=== PATIENT | male | born 1950 | race Caucasian/White ===

== ENCOUNTER → 2016-09-25 | Outpatient (REF) | payer OTHER ==
[~2016-09-25] MED LIST: ATOR1TAB21 PO; CELL250C PO; ELIQ5TAB PO; FENO134C PO; GLIM2TA PO; IMIT100T PO; LISI10TA4 PO; LOPR1TAB7 PO; METO100T PO; PRED10TA PO
[2016-09-25 14:06] LABS: PERCENT SATURATION 23.5 % (19.7-37.4)
== END ==
LOC: M LAB REF 08:35
PROVIDERS: ATTEND Internal Medicine Nephrology
DX: D50.9 Iron deficiency anemia, unspecified (principal)

== ENCOUNTER 2016-10-22 09:50 | Inpatient (IN) | payer OTHER ==
[~2016-10-22] VITALS: Ht 175.3 cm; Wt 81.7 kg
[2016-10-22] MEDS ORDERED: RANITIDINE (10:07)
[2016-10-22] MEDS ORDERED: CALC1CAP31 (10:07)
[2016-10-22] MEDS ORDERED: PRED20TA (10:07)
[2016-10-22] MEDS ORDERED: MONT10TA2 (10:07)
[2016-10-22] MEDS ORDERED: AMLO5TAB2 (10:07)
[2016-10-22] MEDS ORDERED: GLIM2TAB (10:07)
[2016-10-22] MEDS ORDERED: METO100T (10:07)
[2016-10-22] MEDS ORDERED: FURO20TA2 (10:07)
[2016-10-22] MEDS ORDERED: FERR325T (10:07)
[2016-10-22] MEDS ORDERED: ONDANSETRON 4MG/2ML VIAL (J2405) IV ONE (11:15)
[2016-10-22] MEDS ORDERED: MORPHINE 2 MG/ML 1ML SYRINGE IV PRN ×2 (11:45→17:45)
[2016-10-22] MEDS ORDERED: NS 1,000 ML IV SCH (11:45)
[2016-10-22 12:04] LABS: EOS % 0.3 % (0.0-3.0); LARGE UNSTAINED CELL % 0.4 % (0.0-4.0); LYMPH # 0.3 K/mm3 (1.5-4.5); LYMPH % 6.9 % (24.0-44.0); MEAN CORPUSCULAR HEMOGLOBIN 29.4 pg (27.0-33.0); MEAN CORPUSCULAR HGB CONC 31.6 g/dl (32.0-36.5); MEAN CORPUSCULAR VOLUME 93.2 fl (80.0-96.0); MONO # 0.2 K/mm3 (0.0-0.8); MONO % 4.3 % (0.0-5.0); NEUTROPHILS % 88.1 % (36.0-66.0); RED CELL DISTRIBUTION WIDTH 17.1 % (11.5-14.5); WHITE BLOOD COUNT 4.5 K/mm3 (4.0-10.0)
[2016-10-22 12:11] LABS: ALBUMIN/GLOBULIN RATIO 0.77 (1.00-1.93); ALKALINE PHOSPHATASE 115 U/L (45-117); ALT/SGPT 32 U/L (12-78); ANION GAP 9 MEQ/L (8-16); AST/SGOT 11 U/L (15-37); BILIRUBIN,DIRECT 0.6 MG/DL (0.0-0.2); BILIRUBIN,TOTAL 1.6 MG/DL (0.2-1.0); BLOOD UREA NITROGEN 154 MG/DL (7-18); CALCIUM LEVEL 8.6 MG/DL (8.8-10.2); CARBON DIOXIDE LEVEL 19 MEQ/L (21-32); CHLORIDE LEVEL 112 MEQ/L (98-107); CREATININE FOR GFR 8.84 MG/DL (0.70-1.30); GLOMERULAR FILTRATION RATE 6.5 (>49); GLUCOSE, FASTING 90 MG/DL (80-110); SODIUM LEVEL 140 MEQ/L (136-145); TOTAL PROTEIN 6.9 GM/DL (6.4-8.2)
[2016-10-22 12:14] LABS: INR 1.29
[2016-10-22 12:15] LABS: POTASSIUM SERUM 7.3 MEQ/L (3.5-5.1)
[2016-10-22] MEDS ORDERED: NS 1,000 ML IV ONE (12:30)
[2016-10-22] MEDS ORDERED: SOD POLYSTYRENE SULFONATE SUSP 15 GM/60 ML UD PO ONE (12:30)
[2016-10-22] MEDS ORDERED: HumuLIN R (REGULAR) INSULIN (NovoLIN R) **100U/ML** PER UNIT IV STA (12:45)
[2016-10-22] MEDS ORDERED: DEXTROSE 50% 50 ML SYRINGE IV STA (12:45)
[2016-10-22] MEDS ORDERED: CALCIUM CHLORIDE 10% 1 GM in D5W 100 ML IV ONE (12:45)
[2016-10-22 12:50] LABS: PLATELET COUNT, AUTOMATED 25 k/mm3 (150-450)
[2016-10-22] MEDS ORDERED: METOPROLOL TART 50 MG TAB PO ONE (13:00)
--- NOTE | 2016-10-22 13:12 | REP ---
ABDOMINAL SERIES: Supine and erect view of the abdomen demonstrate no free air. A few mildly dilated small bowel loops are seen in the upper abdomen. This could represent mild ileus. Some degree of partial obstruction cannot be excluded. A phlebolith is seen in the right pelvis. There are mild degenerative changes of the spine. An accompanying view of the chest demonstrates no acute infiltrate. Heart is upper limits of normal in size. IMPRESSION: No free air. A few mildly dilated small bowel loops in the upper abdomen are nonspecific. This could represent a mild ileus. I cannot completely exclude some degree of partial small bowel obstruction. Signed by Du Manzo MD 10/22/2016 04:22 P
[2016-10-22] MEDS ORDERED: PIPERACILLIN/TAZOBACTAM SOD 2.25 GM in D5W MINI-BAG PLUS 50 ML IV ONE (14:00)
--- NOTE | 2016-10-22 14:01 | REP ---
CT ABDOMEN AND PELVIS WITHOUT CONTRAST: CT abdomen and pelvis performed without IV contrast with sagittal and coronal reconstruction images. Visualized lung bases demonstrate mild fibrotic changes. Liver is grossly unremarkable. Multiple gallstones are seen in the gallbladder. Spleen, adrenals, and pancreas are grossly unremarkable. There are small bilateral renal cysts present with a hyperdense cyst in the left upper pole. There is no hydronephrosis or nephrolithiasis bilaterally. There is mild to moderate atherosclerotic calcification of the abdominal aorta without aneurysm. There is no adenopathy. There is no free air. Sigmoid colon demonstrates diffuse thickening with associated diverticula and surrounding streaky inflammatory change compatible with diverticulitis. A small amount of free fluid is seen in the pelvis. Urinary bladder is mildly distended and grossly unremarkable. IMPRESSION: Findings compatible with sigmoid diverticulitis with mild adjacent free fluid in the pelvis. No free air. No abscess seen. Small gallstones are seen in the gallbladder. Signed by Du Manzo MD 10/22/2016 04:22 P
[2016-10-22] MEDS ORDERED: METO100T PO (14:04)
[2016-10-22] MEDS ORDERED: SING10TA32 PO (14:04)
[2016-10-22] MEDS ORDERED: FERR325T PO (14:04)
[2016-10-22] MEDS ORDERED: PRED20TA PO (14:04)
[2016-10-22] MEDS ORDERED: ATOR1TAB21 PO (14:04)
[2016-10-22] MEDS ORDERED: CALC1CAP31 PO (14:04)
[2016-10-22] MEDS ORDERED: GLIM2TAB PO (14:04)
[2016-10-22] MEDS ORDERED: AMLO5TAB2 PO (14:04)
[2016-10-22] MEDS ORDERED: FURO20TA2 PO (14:04)
[2016-10-22] MEDS ORDERED: SUMA100T2 PO (14:06)
[2016-10-22] MEDS ORDERED: RANI150T PO (14:06)
--- NOTE | 2016-10-22 14:09 | HPEPDOC ---
Medical History and Physical Date of Admission History and Physical DATE OF ADMISSION: 09/06/15 ATTENDING: Dr. Burk PCP: Dr Alberto Manager Outreach. Dr Wetzel News Commentator- [place] Senior National Account Manager. Dr Carreon. CC: Abdominal pain HPI: 65yoM with a past medical history significant for CKD followed by Dr Wetzel , thrombocytopenia, recently evaluated with Rheumatology [place] for SLE. Pt with h/o DM2, Afib. Pt states his symptoms began last week. He was having a difficult time with BM and took ex lax which seemed to help. He states there was a sensation of "blockage" between the "rectum and bladder". It seemed to improve but Pt states he had "pasty brown stool" and "diarrhea" for a few days. Then began with Nausea, vomitting and lower abdominal pain with decreased po intake for the past 2-3 days. Pt states has not been able to take po meds past few days. Pt feels fatigued. No melena, hematochezia, hematuria. Denies NSAID use or any other OTC meds. Denies any fevers, chills, CP, SOB, cough, palpitations, changes in bladder habits. Upon presentation to the hospital the patient was found to have MAI, hyperkalemia, abdominal pain and thrombocytopenia, thus the hospitalist team was consulted. PMHx: DM2 Afib HLD Migraine [place] HTN CKD- followed by Dr Wetzel. H/O glomerulonephritis with Immune complex deposition disease. On Cellcept/prednisone as per Nephro. 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 1 sister alcoholism Children: Alive, Grave's disease Unexpected deaths due to medical reasons: None. ROS: As noted in HPI, otherwise 11pt ROS of systems reviewed and unremarkable. Pt states results of labs pending from Rheumatology [place]. PE: GEN: 65yoM, appears stated age. ill appearing. Alert and oriented x 3. Pleasant , interactive. HEENT: Normocephalic, atraumatic. Pupils are equal, round, and reactive to light. Extraocular movements are intact. No nystagmus appreciated. Sclera are nonicteric. Conjunctiva without injection. Nose midline. Nasal turbinates without bogginess. No facial asymmetry. Moist mucous membranes. Dentition fair. Pharynx pink and moist, no cobblestoning. Neck supple, trachea midline. No lymphadenopathy or thyromegaly appreciated. CHEST: Irregularly irregular, Tachycardic. Systolic murmur noted LUNGS: Clear to auscultation bilaterally. No wheezes, rales, or rhonchi. Breathing appears symmetric and easy. Patient is speaking in full sentences. No accessory muscle use. ABD: Round, soft, TTP LLQ>RLQ. Pt with mild TTP over LUQ. +Bowel sounds decreased. RT noted LLQ. No costovertebral angle tenderness. EXT: Pulses 2+ bilaterally dorsalis pedis and radial. No lower extremity edema appreciated. SKIN: [place], dry, warm. Capillary refill <2sec. erythematous papules noted torso. NEURO: Alert and oriented x 3. Cranial nerves III-XII are intact. No focal deficits appreciated. AXR: No free air. A few mildly dilated small bowel loops in the upper abdomen are nonspecific. This could represent a mild ileus. I cannot completely exclude some degree of partial small bowel obstruction. CT: A&P- pending LA 1.0 EKG: A fib, RVR 128bpm, NSSTabn. BC x 2 pending UC pending. A&P: 65yoM with a past medical history significant for CKD followed by Dr Wetzel, thrombocytopenia, recently evaluated with Rheumatology [place] for SLE. Pt with h/o DM2, Afib. Pt states his symptoms began last week. He was having a difficult time with BM and took ex lax which seemed to help. He states there was a sensation of "blockage" between the "rectum and bladder". It seemed to improve but Pt states he had "pasty brown stool" and "diarrhea" for a few days. Then began with Nausea, vomitting and lower abdominal pain with decreased po intake for the past 2-3 days. Pt states has not been able to take po meds past few days. 1. The patient will be admitted to ICU for at least [address] Burk's service. Pt is discussed with Dr Falk. 2. MAI/CKD. H/O glomerulonephritis with Immune complex deposition disease. ED/ Dr Falk discussed with Dr Wetzel. On Cellcept/prednisone as per Nephro- Follows with Dr Wetzel- baseline SCr 3.0-3.7. SCr was noted 8.84. IVF bolus x 1 in ED , additional bolus ordered, then at 100cc/hr. UC/BC pending. Consult Nephrology for further management as well. 3. Abdominal pain. CT result pending. Preliminary review indicative of Diverticulitis. (Pt with h/o Diverticulitis in past.) IV Zosyn renally dosed. NPO. 4. Thrombocytopenia. Plt [address] in ED. Discussed with Dr Wetzel and per previous labs Plt 65 09/27/16. 36-38 at visit in [place]. Stat peripheral smear pending. Consider Plt infusion with further decreased levels. 5. Hyperkalemia. S/P IV Calcium, Insulin 10 units, Kayexalate in ED. Nephrology consulted to further manage electrolytes. Recheck with labs at 4 PM. 6. Anemia- Baseline 8-9 per previous labs. Currently 10.6. 7. Possible SLE. Seen by rheumatology in [place] recently. Pt remains on po prednisone. 4. DM2- NPO currently. SSI Q6hr. 5. HTN- med rec pending. Lopressor with hold parameters oredered. 6. HLD- med rec pending, cont statin. 7. Afib- Cont metoprolol po 50 mg Q6 (usual dose 100mg BID)/Eliquis discontinued as per nephrology related to thrombocytopenia. CIP/Trop x 3 pending. ICU/TM. 8. H/O Migraine [place]- tylenol prn DVT prophylaxis SCD/TEDS. No Lovenox related to thrombocytopenia. The patient is a Full Code Vital Signs Vital Signs Date Time Temp Pulse Resp B/P (MAP) Pulse Ox O2 Delivery O2 Flow Rate FiO2 10/22/16 13:10 155/83 10/22/16 12:20 18 10/22/16 11:51 126 100 Room Air 10/22/16 09:51 99.0 Laboratory Data Labs 24H Laboratory Tests 2 10/22/16 11:02: White Blood Count 4.5, Red Blood Count 3.58L, Hemoglobin 10.6L, Hematocrit 33.4L , Mean Corpuscular Volume 93.2, Mean Corpuscular Hemoglobin 29.4, Mean Corpuscular Hemoglobin Concent 31.6L, Red Cell Distribution Width 17.1H, Platelet Count 25*L, Neutrophils (%) (Auto) 88.1H, Lymphocytes (%) (Auto) 6.9L, Monocytes (%) (Auto) 4.3, Eosinophils (%) (Auto) 0.3, Basophils (%) (Auto) 0.0, Neutrophils # (Auto) 4.0, Lymphocytes # (Auto) 0.3L, Monocytes # (Auto) 0.2, Eosinophils # (Auto) 0.0, Basophils # (Auto) 0.0, Large Unclassified Cells % 0.4 , Large Unclassified Cells # 0.0, Prothrombin Time 16.2H, Prothromb Time International Ratio 1.29, Activated Partial Thromboplast Time 38.2H, Anion Gap 9 , Glomerular Filtration Rate 6.5L, Calcium Level 8.6L, Aspartate Amino Transf ( AST/SGOT) 11L, Alanine Aminotransferase (ALT/SGPT) 32, Alkaline Phosphatase 115 , Total Bilirubin 1.6H, Direct Bilirubin 0.6H, Total Protein 6.9, Albumin 3.0L, Albumin/Globulin Ratio 0.77L, Lipase 677H 10/22/16 12:03: Lactic Acid Level 1.0 10/22/16 12:38: Urine Appearance CLEAR, Urine Color YELLOW, Urine pH 6.0, Urine Specific [place] 1.010, Urine Protein 1+H, Urine Glucose (UA) NEGATIVE, Urine Ketones TRACEH, Urine Urobilinogen 0.2, Urine Bilirubin NEGATIVE, Urine Leukocyte Esterase NEGATIVE, Urine Blood 3+H, Urine Nitrite NEGATIVE, Urine WBC (Auto) 8H , Urine RBC (Auto) TNTCH, Urine Hyaline Casts (Auto) 0, Urine Bacteria (Auto) NEGATIVE, Urine Squamous Epithelial Cells 0, Urine Sperm (Auto) CBC/BMP Laboratory Tests 10/22/16 11:02 Red Blood Count 3.58 L, Mean Corpuscular Volume 93.2, Mean Corpuscular Hemoglobin 29.4, Mean Corpuscular Hemoglobin Concent 31.6 L, Red Cell Distribution Width 17.1 H, Neutrophils (%) (Auto) 88.1 H, Lymphocytes (%) (Auto ) 6.9 L, Monocytes (%) (Auto) 4.3, Eosinophils (%) (Auto) 0.3, Basophils (%) ( Auto) 0.0, Neutrophils # (Auto) 4.0, Lymphocytes # (Auto) 0.3 L, Monocytes # ( Auto) 0.2, Eosinophils # (Auto) 0.0, Basophils # (Auto) 0.0 Microbiology Microbiology 10/22/16 Blood Culture, Received Pending 10/22/16 Blood Culture, Received Pending 10/22/16 Urine Culture, Received Pending Home Medications Scheduled Amlodipine Besylate (Amlodipine Besylate) 5 Mg Tab, 5 MG PO DAILY Atorvastatin Calcium (Atorvastatin Calcium) 20 Mg Tab, 20 MG PO QHS Calcitriol (Calcitriol) 0.25 Mcg Cap, 0.25 MCG PO Q2D Ferrous Sulfate (Ferrous Sulfate) 325 Mg Tab, 325 MG PO BID Furosemide (Furosemide) 20 Mg Tab, 20 MG PO DAILY Glimepiride (Glimepiride) 2 Mg Tab, 2 MG PO BID Metoprolol Tartrate (Metoprolol Tartrate) 100 Mg Tab, 150 MG PO BID Montelukast Sodium (Singulair) 10 Mg Tab, 10 MG PO DAILY Prednisone (Prednisone) 20 Mg Tab, 30 MG PO DAILY PATIENT STATES DR WETZEL IS DECREASING HIM FROM ORIGINAL 20MG BID, IS DOWN TO 30MG DAILY FOR ABOUT 1 MORE WEEK THEN DECREASING TO 20MG DAILY Ranitidine HCl (Ranitidine HCl) 150 Mg Tab, 1 TAB PO BID Scheduled PRN Sumatriptan Succinate (Sumatriptan Succinate) 100 Mg Tab, 100 MG PO PRN PRN for MIGRAINE Allergies Coded Allergies: No Known Drug Allergy (Unverified Allergy, Unknown, 09/06/15) Georgia Bui October 22, 2016 14:09
[2016-10-22] MEDS ORDERED: SODIUM CHLORIDE 0.9% 1000 ML IV ONE (14:30)
[2016-10-22 14:45] LABS: ABG HCO3 12.7 MEQ/L (22.0-26.0); ABG PARTIAL PRESSURE CO2 22.2 mmHg (35.0-45.0); ABG PARTIAL PRESSURE O2 148.7 mmHg (75.0-100.0); ABG STANDARD HCO3 15.7 MEQ/L (22.0-26.0); ABG TOTAL CO2 13.3 MEQ/L (23.0-31.0); ABG pH (ARTERIAL) 7.374 UNITS (7.350-7.450)
[2016-10-22] MEDS ORDERED: DEXTROSE 50% 50 ML SYRINGE IV PRN ×2 (14:45→21:30)
[2016-10-22] MEDS ORDERED: GLUCOSE 4 GM CHEW TABLET PO PRN ×2 (14:45→21:30)
[2016-10-22] MEDS ORDERED: GLUCAGON FOR INJ 1 MG VIAL (J1610) SC PRN ×2 (14:45→21:30)
[2016-10-22 14:54] LABS: REASON FOR REVIEW COMPREHENSIVE REVIEW
[2016-10-22 15:15] LABS: DIFF SLIDE NUMBER 303; MEAN CORPUSCULAR HEMOGLOBIN 29.8 pg (27.0-33.0); MEAN CORPUSCULAR HGB CONC 32.5 g/dl (32.0-36.5); MEAN CORPUSCULAR VOLUME 91.8 fl (80.0-96.0); RED CELL DISTRIBUTION WIDTH 17.4 % (11.5-14.5); WHITE BLOOD COUNT 5.1 K/mm3 (4.0-10.0)
[2016-10-22 15:38] LABS: PLATELET COUNT, AUTOMATED 28 k/mm3 (150-450)
[2016-10-22 15:41] LABS: ANISOCYTOSIS 1+
[2016-10-22 15:47] LABS: ALBUMIN 2.9 GM/DL (3.2-5.2); ALBUMIN/GLOBULIN RATIO 0.94 (1.00-1.93); ALKALINE PHOSPHATASE 106 U/L (45-117); ALT/SGPT 29 U/L (12-78); ANION GAP 11 MEQ/L (8-16); AST/SGOT 10 U/L (15-37); BILIRUBIN,TOTAL 1.3 MG/DL (0.2-1.0); CALCIUM LEVEL 8.6 MG/DL (8.8-10.2); CARBON DIOXIDE LEVEL 18 MEQ/L (21-32); CHLORIDE LEVEL 117 MEQ/L (98-107); CREATININE FOR GFR 8.59 MG/DL (0.70-1.30); GLOMERULAR FILTRATION RATE 6.7 (>49); GLUCOSE, FASTING 40 MG/DL (80-110); SODIUM LEVEL 146 MEQ/L (136-145)
[2016-10-22 15:50] LABS: POTASSIUM SERUM 6.2 MEQ/L (3.5-5.1)
[2016-10-22 15:51] LABS: BLOOD UREA NITROGEN 143 MG/DL (7-18)
[2016-10-22] MEDS ORDERED: HumaLOG INSULIN (NovoLOG) PER UNIT SC SCH ×2 (17:30→21:00)
[2016-10-22] MEDS ORDERED: METOPROLOL 5 MG/5 ML VIAL IV STA (17:40)
[2016-10-22 18:00] VITALS: BP 149/80
[2016-10-22] MEDS ORDERED: METOPROLOL TART 50 MG TAB PO SCH (18:00)
[2016-10-22] MEDS ORDERED: D5/0.9%NACL 1000ML IV ONE (18:00)
[2016-10-22] MEDS: ONDANSETRON 4MG/2ML VIAL (J2405) IV PRN (18:13)
[2016-10-22 19:23] LABS: CALCIUM LEVEL 7.9 MG/DL (8.8-10.2); CREATININE FOR GFR 8.66 MG/DL (0.70-1.30); GLOMERULAR FILTRATION RATE 6.6 (>49); MAGNESIUM LEVEL 1.4 MG/DL (1.8-2.4)
[2016-10-22 19:28] LABS: POTASSIUM SERUM 6.7 MEQ/L (3.5-5.1)
[2016-10-22 20:00] VITALS: BP 127/76
[2016-10-22 21:00] VITALS: BP 132/87
[2016-10-22] MEDS ORDERED: ATORVASTATIN 20 MG TAB PO SCH (21:00)
[2016-10-22] MEDS: MONTELUKAST 10 MG TAB PO SCH (21:10)
[2016-10-22] MEDS: predniSONE 10 MG TAB PO SCH (21:11)
[2016-10-22] MEDS: PIPERACILLIN/TAZOBACTAM SOD 2.25 GM in D5W MINI-BAG PLUS 50 ML IV SCH (21:11)
[2016-10-22] MEDS: SODIUM BICARBONATE 100 MEQ in D5W 1,000 ML IV SCH (21:12)
--- NOTE | 2016-10-22 21:12 | CR ---
DATE OF CONSULTATION: 10/22/2016 REQUESTING PHYSICIAN: Lisa Falk DO CONSULTING PHYSICIAN: Beulah Avila MD REASON FOR CONSULTATION: Management of acute kidney injury and hyperkalemia. CHIEF COMPLAINT: Patient presented to the emergency room today with pain in abdomen and loose stools for about 2-3 days. HISTORY OF PRESENT ILLNESS: Mr. Davion Gottlieb is a 65-year-old male who is a clinic patient of Dr. Wetzel, well known to nephrology service. He has history of glomerulonephritis secondary to immune complex deposition disease. He was treated with prednisone and CellCept up until he started developing pancytopenia. His CellCept is on hold at this time. His latest outpatient creatinine was 1.2 about a month ago. He was also recently evaluated by rheumatology in [place]. Patient presented to the emergency room today with 2-3 days history of pain in lower abdomen, difficulty with bowel movements, difficultly voiding his urine, sense of incomplete voiding, and loose stools. Patient was also nauseated and vomiting, he had very decreased oral intake. Patient felt very weak, fatigued, and tired, so he presented to the emergency room today. On arrival in the emergency room (ER), he was found to have acute renal failure. Further workup in the emergency room, including a CT scan of the abdomen showed acute diverticulitis. Patient was found to have a creatinine of 8.8 on admission with a potassium of 7.3. He was initially treated with insulin, dextrose 50% (D50), Kayexalate and calcium. Nephrology service was called for further management of acute kidney injury and hyperkalemia. Patient has already been given 2 liters of IV fluids in the emergency room. Patient also reports getting chills and rigors and he is reporting persistent lower abdominal pain with tenderness despite the pain medication. PAST MEDICAL HISTORY: 1. Chronic kidney disease stage III, with a baseline creatinine of around 1.2. 2. He has history of glomerulonephritis with immune complex deposition disease, currently on prednisone. 3. History of pancytopenia. 4. History of tender splenomegaly. 5. Cholelithiasis. 6. History of diverticulosis. 7. History of coronary artery disease. 8. History of brain tumor in the past. 9. Questionable history of systemic lupus erythematous (SLE). PAST SURGICAL HISTORY: 1. Status post mitral valve repair and coronary artery bypass grafting in 2005. 2. Status post appendectomy. 3. History of colonoscopy in 2013. ALLERGIES: No known drug allergies. FAMILY HISTORY: No significant family history of end-stage renal disease requiring hemodialysis. Positive family history of congestive heart failure (CHF) in mother and myocardial infarction (MS) in father. SOCIAL HISTORY: Patient denies any alcohol abuse or drug abuse and he is currently retired. REVIEW OF SYSTEMS: CONSTITUTIONAL: The patient reports chills, rigors, and weakness. EYES: He denies any blurry vision or double vision. EARS, NOSE, THROAT (ENT): He denies any dysphagia, odynophagia, or ear discharge. CARDIOVASCULAR: Patient reports history of atrial fibrillation and currently reports tachycardia and palpitations. RESPIRATORY: He denies any cough, shortness of breath, or wheezing. GASTROINTESTINAL (GI): Patient reports nausea, vomiting, decreased appetite, pain in abdomen, and loose stools. GENITOURINARY: Patient reports sense of incomplete voiding of the urine. He denies any dysuria or hematuria. MUSCULOSKELETAL: Patient reports weakness, otherwise he denies muscle aches and pains. CENTRAL NERVOUS SYSTEM (FICTION AND NONFICTION PROSE WRITER): Patient reports history of benign brain tumor, otherwise denies history of seizures or weakness. PSYCHIATRIC: Denies history of depression or anxiety. SKIN: Denies any skin rashes or ulcers. HEMATOLOGIC/ONCOLOGIC: Patient reports pancytopenia and reports splenomegaly as well. ENDOCRINE: Denies history of diabetes, hyperthyroidism, or hypothyroidism. All other review of systems is negative. PHYSICAL EXAMINATION: GENERAL: The patient is awake, alert, oriented times three, laying in bed, in moderate painful distress. VITAL SIGNS: Temperature 98.7 degrees Fahrenheit, blood pressure 145/97, pulse 136, respiratory rate 16, saturating 99% on room air. INTAKE and OUTPUT: Urine output is not recorded so far. Weight in the bed scale is 81 kg. HEAD and NECK EXAM: Extraocular muscles intact. Pupils equally round and reactive to light. Mucous membranes are dry. Neck is supple, there is no jugular venous distention (JVD). CARDIOVASCULAR: S1, S2, tachycardia. No murmur, rub, or gallop. RESPIRATORY: Clear to auscultation bilaterally. Bilaterally good air entry. No rales or rhonchi. ABDOMEN: Soft. Severely tender to deep palpation in the left lower quadrant and suprapubic region. He has rebound tenderness as well. Patient's spleen is palpable in the left upper quadrant and spleen is also very tender to palpate. Decreased bowel sounds all over. Liver is not palpable. EXTREMITIES: No clubbing or cyanosis. Pulses are 2+. FICTION AND NONFICTION PROSE WRITER: No focal neurological deficit. Power is 5/5 in all extremities. SKIN: No rashes or ulcers. LYMPH NODES: No significant cervical, axillary, or inguinal lymphadenopathy. LABORATORY REVIEW: CBC showed WBC 5,1, hemoglobin 10.1, platelets 28. INR is 1.29. Urinalysis showed 1+ protein, trace ketones, 3+ blood, too numerous to count RBCs. BMP on arrival showed sodium 140, potassium 7.3, chloride 112, bicarbonate 19, BUN 156, creatinine 8.8, calcium 8.6, albumin 3. Repeat BMP after initial resuscitation showed sodium 144, potassium 6.7, chloride 118, bicarbonate 17, BUN 146, creatinine 8.6, calcium 7.9, magnesium 1.4, lipase 677. Microbiology: Cultures are pending. IMAGING: CT scan of the abdomen and pelvis was done without contrast which showed sigmoid diverticulitis with mild adjacent free fluid in the pelvis. No free air. No abscess was seen. CURRENT INPATIENT MEDICATIONS: The patient's inpatient medications include: - D5W with 100 mEq of bicarbonate at 125 mL/hour, IV fluid boluses have already been given - Zosyn 2.25 grams IV every 8 hours - insulin sliding scale per protocol - metoprolol 5 mg IV every 6 hours - Singulair 10 mg by mouth daily - morphine 2 mg IV every 4 hours as needed for pain - Zofran 4 mg IV as needed for nausea and vomiting - prednisone 30 mg by mouth daily ASSESSMENT: 65-year-old male with recent history of acute glomerulonephritis, currently on prednisone, CellCept is on hold because of pancytopenia, admitted at this time because of acute diverticulitis and acute renal failure with hyperkalemia. PLAN: 1. Acute kidney injury superimposed on chronic kidney disease stage III. Patient has a baseline creatinine of around 1.2. He has a history of immune complex deposition disease. He was responding very well to prednisone and CellCept, however CellCept had to be stopped because of pancytopenia. Continue the prednisone dose at this time. I strongly suspect that the acute kidney injury at this time is because of dehydration and volume depletion. I have started the patient on IV bicarbonate containing fluids. Continue the fluid at 125 mL/hour. Continue to monitor intake and output. If patient's renal function does not start improving by tomorrow, then he will probably need hemodialysis catheter placement and initiation of hemodialysis. 2. Hyperkalemia. Hyperkalemia is secondary to severe metabolic acidosis and acute renal failure. Patient was already given Kayexalate in the emergency room. I would not give any more Kayexalate to this patient with acute diverticulitis. He was already given insulin, D50, calcium, and sodium bicarbonate in the emergency room. I have started the patient on bicarbonate containing fluid. Improvement of the renal function on diuresis should help improve hyperkalemia. Continue to monitor basic metabolic panel (BMP) every 4 hours. No acute EKG changes at this time. No urgent need of hemodialysis at this time, however I would have a very low threshold to do hemodialysis in this patient if his renal function does not improve. 3. Acute diverticulitis. Patient is nothing by mouth at this time. Medications have been changed into IV. Continue IV Zosyn at 2.5 grams IV every 8 hours which is adequate for his renal function. Continue pain optimization with IV morphine and continue Zofran for nausea and vomiting. 4. Atrial fibrillation with rapid ventricular rate. Patient was having tachycardia with a pulse rate of around 130s. I have ordered a dose of metoprolol 5 mg IV. Continue metoprolol 5 mg IV every 6 hours. If heart rate does not improve, patient can be given a dose of amiodarone 150 mg IV times one dose. 5. Anemia and thrombocytopenia. It is secondary to recent use of CellCept. Hemoglobin is within the acceptable limit at this time. Platelet count is slightly low. Part of it is secondary to splenomegaly. Rheumatology had recommended getting a splenectomy done in this patient, however this is not possible at this time because of acute illness. Continue to monitor for now. 6. Diabetes mellitus type 2. Patient is nothing by mouth at this time. Continue insulin sliding scale as per primary team. 7. Hypertension. Patient's blood pressure is slightly elevated at this time. I would not tightly control the blood pressure at this time in this patient who has sepsis secondary to acute diverticulitis. Continue every 6 hours IV metoprolol. 8. Normal anion gap metabolic acidosis. It is secondary to acute renal failure and diarrhea. I have started the patient on IV bicarbonate containing fluids. Acidosis is expected to improve with improvement in the renal function. Thank you for involving us in the care of this patient. We shall be happy to follow the patient along with you tomorrow morning. Plan of care was discussed with the patient's nurse.
[2016-10-22] MEDS ORDERED: CALCIUM GLUCONATE 1,000 MG in D5W MINI-BAG PLUS 100 ML IV ONE (21:30)
[2016-10-22 22:00] VITALS: BP 133/88
[2016-10-22 22:51] LABS: MEAN CORPUSCULAR HEMOGLOBIN 28.6 pg (27.0-33.0); MEAN CORPUSCULAR HGB CONC 30.5 g/dl (32.0-36.5); MEAN CORPUSCULAR VOLUME 93.8 fl (80.0-96.0); RED CELL DISTRIBUTION WIDTH 17.3 % (11.5-14.5); WHITE BLOOD COUNT 3.6 K/mm3 (4.0-10.0)
[2016-10-22 23:00] VITALS: BP 143/89
[2016-10-22 23:10] LABS: ANION GAP 10 MEQ/L (8-16); BLOOD UREA NITROGEN 145 MG/DL (7-18); CALCIUM LEVEL 8.6 MG/DL (8.8-10.2); CARBON DIOXIDE LEVEL 17 MEQ/L (21-32); CHLORIDE LEVEL 117 MEQ/L (98-107); CREATININE FOR GFR 8.66 MG/DL (0.70-1.30); GLOMERULAR FILTRATION RATE 6.6 (>49); GLUCOSE, FASTING 110 MG/DL (80-110); SODIUM LEVEL 144 MEQ/L (136-145)
[2016-10-22 23:14] LABS: POTASSIUM SERUM 6.6 MEQ/L (3.5-5.1)
[2016-10-23] VITALS (27 sets, daily range): BP systolic 109–153; BP diastolic 62–98
[2016-10-23] MEDS: METOPROLOL 5 MG/5 ML VIAL IV SCH ×6 (00:13→21:34)
[2016-10-23] MEDS: HumaLOG INSULIN (NovoLOG) PER UNIT SC SCH ×4 (00:14→17:53)
[2016-10-23 02:46] LABS: CALCIUM LEVEL 8.1 MG/DL (8.8-10.2); CREATININE FOR GFR 8.81 MG/DL (0.70-1.30); GLOMERULAR FILTRATION RATE 6.5 (>49)
[2016-10-23 02:49] LABS: POTASSIUM SERUM 6.8 MEQ/L (3.5-5.1)
[2016-10-23] MEDS: SODIUM BICARBONATE 100 MEQ in D5W 1,000 ML IV SCH ×3 (04:21→17:34)
[2016-10-23] MEDS: PIPERACILLIN/TAZOBACTAM SOD 2.25 GM in D5W MINI-BAG PLUS 50 ML IV SCH ×3 (06:11→21:34)
[2016-10-23 07:57] LABS: MEAN CORPUSCULAR HEMOGLOBIN 29.6 pg (27.0-33.0); MEAN CORPUSCULAR VOLUME 92.3 fl (80.0-96.0); RED CELL DISTRIBUTION WIDTH 17.3 % (11.5-14.5); WHITE BLOOD COUNT 2.5 K/mm3 (4.0-10.0)
[2016-10-23 08:11] LABS: ANION GAP 10 MEQ/L (8-16); BLOOD UREA NITROGEN 144 MG/DL (7-18); CALCIUM LEVEL 8.2 MG/DL (8.8-10.2); CARBON DIOXIDE LEVEL 18 MEQ/L (21-32); CHLORIDE LEVEL 114 MEQ/L (98-107); CREATININE FOR GFR 8.89 MG/DL (0.70-1.30); GLOMERULAR FILTRATION RATE 6.4 (>49); GLUCOSE, FASTING 237 MG/DL (80-110); SODIUM LEVEL 142 MEQ/L (136-145)
[2016-10-23 08:14] LABS: POTASSIUM SERUM 6.9 MEQ/L (3.5-5.1)
[2016-10-23] MEDS ORDERED: amLODIPine 5 MG TAB PO SCH (09:00)
--- NOTE | 2016-10-23 09:33 | ECGEPIP ---
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
[2016-10-23] MEDS: MONTELUKAST 10 MG TAB PO SCH (09:44)
[2016-10-23] MEDS: PANTOPRAZOLE 40MG TAB (PROTONIX) PO SCH (09:44)
[2016-10-23] MEDS: predniSONE 10 MG TAB PO SCH (09:44)
[2016-10-23] MEDS: METOPROLOL TARTRATE 100 MG TAB PO SCH ×2 (09:45→21:33)
[2016-10-23] MEDS: ONDANSETRON 4MG/2ML VIAL (J2405) IV PRN (09:51)
[2016-10-23] MEDS ORDERED: LIDOCAINE W/EPINEPHRINE 1% 20ML VIAL As Ordered ONE (10:37)
[2016-10-23] MEDS ORDERED: HEPARIN 1,000 UNITS/ML 10ML VIAL (FOR RADIOLOGY& DIALYSIS ONLY) As Ordered ONE (10:37)
[2016-10-23] MEDS ORDERED: SODIUM BICARBONATE 8.4% INJ 50MEQ 50 ML VIAL As Ordered ONE (10:37)
[2016-10-23] MEDS ORDERED: HEPARIN 1,000 UNITS/ML 10ML VIAL (FOR RADIOLOGY& DIALYSIS ONLY) XX ONE (11:15)
[2016-10-23] MEDS ORDERED: fentaNYL 100 MCG/2 ML INJECTION (J3010) As Ordered ONE (11:18)
--- NOTE | 2016-10-23 12:42 | REPKIM ---
CLINICAL HISTORY: Renal failure, thrombocytopenia, CAD. The referring nephrology service has requested a tunneled dialysis catheter placement for hemodialysis. PROCEDURE PERFORMED: Right IJ Tunneled Hemodialysis Catheter Placement INTERVENTIONALIST: Ashia Husain MD CONSENT: The risks, benefits and alternatives to the procedure were explained to the patient and informed written consent was obtained. MEDICATIONS: Local Lidocaine and Fentanyl 50 mcg IV. Independent trained observer was present during the entire duration of the procedure for monitoring. EBL: 25 mL DEVICE USED: 14.5-Hungarian 19-cm tip to cuff EvenMore Catheter Lot#[id number] FLUORO TIME: 0.2 minutes PROCEDURE/FINDINGS: The patient was brought to the interventional radiology suite where a timeout procedure was performed. The patient was placed in the supine position. The right neck and upper chest were prepped and draped in the usual sterile fashion. Real time ultrasound was used and permanent image stored. Using ultrasound guidance the internal jugular vein was punctured with a micropunture needle, after infiltration of the skin and deep tissues with local anesthetic. A 19-cm tip to cuff length, 14.5-Hungarian dual lumen EvenMore hemodialysis catheter was inserted. The catheter was placed through a subcutaneous tunnel requiring a second incision. The incision at the base of the neck was closed with 4-0 Vicryl suture and covered with steristrips. The catheter was secured at the skin exit site with 2-0 Prolene suture. The ports of the catheter were locked with heparin (1000 units/mL). A sterile dressing was then applied. Patient received platelet transfusion during the procedure due to severe thrombocytopenia. Post procedure chest fluoroscopy showed the tip of the catheter at the SVC. The patient tolerated the procedure well with no immediate complications. This procedure was performed using ultrasound and fluoroscopy. Dr. Husain was present. IMPRESSION: 1. Ultrasound of the neck demonstrates patent right IJ vein and compressible. 2. Successful right IJ tunneled hemodialysis catheter placement as discussed above. There is free aspiration of blood from all ports of the catheter. The catheter is ready for immediate use. cc: MD Gardenia White MD [facility] NETWORKRoxy
[2016-10-23 12:50] LABS: HEPATITIS B SURFACE ANTIBODY NEGATIVE (POSITIVE)
[2016-10-23] MEDS ORDERED: fentaNYL 100 MCG/2 ML INJECTION (J3010) IV SCH (13:30)
[2016-10-23 14:02] LABS: CHOLESTEROL LEVEL 85 MG/DL (<200); TRIGLYCERIDES LEVEL 89 MG/DL (<150)
[2016-10-23 14:58] LABS: CALCIUM LEVEL 8.1 MG/DL (8.8-10.2); CREATININE FOR GFR 8.83 MG/DL (0.70-1.30); GLOMERULAR FILTRATION RATE 6.5 (>49)
[2016-10-23 15:00] LABS: POTASSIUM SERUM 6.3 MEQ/L (3.5-5.1)
[2016-10-23 16:19] LABS: MEAN CORPUSCULAR HEMOGLOBIN 29.5 pg (27.0-33.0); MEAN CORPUSCULAR HGB CONC 32.7 g/dl (32.0-36.5); MEAN CORPUSCULAR VOLUME 90.4 fl (80.0-96.0); RED CELL DISTRIBUTION WIDTH 17.4 % (11.5-14.5)
[2016-10-23] MEDS: ACETAMINOPHEN TAB 650MG DOSE (2X325MG) PO PRN (18:36)
[2016-10-23 22:47] LABS: MEAN CORPUSCULAR HEMOGLOBIN 30.3 pg (27.0-33.0); MEAN CORPUSCULAR VOLUME 91.9 fl (80.0-96.0); WHITE BLOOD COUNT 2.1 K/mm3 (4.0-10.0)
[2016-10-23 22:51] LABS: CALCIUM LEVEL 7.6 MG/DL (8.8-10.2); CREATININE FOR GFR 5.86 MG/DL (0.70-1.30); GLOMERULAR FILTRATION RATE 10.4 (>49); POTASSIUM SERUM 4.7 MEQ/L (3.5-5.1)
[2016-10-23] MEDS ORDERED: DESMOPRESSIN ACETATE 20 MCG in NS 50 ML IV ONE (23:00)
[2016-10-24] VITALS (26 sets, daily range): BP systolic 116–175; BP diastolic 66–87
[2016-10-24] MEDS: METOPROLOL 5 MG/5 ML VIAL IV SCH ×2 (02:00→06:00)
--- NOTE | 2016-10-24 02:37 | IPN ---
DATE OF SERVICE: 10/23/2016 SUBJECTIVE: Patient was seen and examined at the bedside today morning in the intensive care unit (ICU). Patient continues to be hyperkalemic. Patient does have improving urine output, but his renal function was not improving. Hemodialysis was discussed with the patient. The patient agreed to have hemodialysis done. He also reports that last time when he had glomerulonephritis he also needed hemodialysis shortly during that admission as well. Patient reports that pain abdomen is getting better and his loose stool symptoms are also improving at this time. REVIEW OF SYSTEMS: Patient denies any fever, chills, rigors, headaches, nausea, vomiting. He denies any chest pain or shortness of breath. He does report lower abdominal pain, but it is significantly better as compared with yesterday. Rest of review of systems is negative. Patient also reports tachycardia and palpitations because of the ongoing atrial fibrillation at this time. OBJECTIVE: Vital signs: Temperature this morning was 97.9 degrees Fahrenheit, blood pressure is 122/81. Pulse was 125. Respiratory rate of 21 with saturation of 97% on room air. Intake and output: Urine output recorded as 150 mL yesterday, 1100 mL so far today since overnight. Weight on the bed scale is 81 kg. PHYSICAL EXAMINATION: General: Patient is awake, alert, oriented times three sitting in the sofa. No apparent distress. Head and neck exam: Extraocular muscles intact. Pupils equally round and reactive to light. Mucous membranes are moist. Neck is supple. There is no jugular venous distention (JVD). Cardiovascular: S1, S2, heart rate irregularly irregular, tachycardia. Otherwise, no murmur, rub or gallop. Respiratory: Chest is clear to auscultation bilaterally. Bilateral equal air entry. No rales or rhonchi. Abdomen: Soft, mildly tender to palpation in the left lower quadrant. His pain is significantly better as compared with yesterday. There is no ascites. Patient has very tender splenomegaly. Extremities: No clubbing or cyanosis. Pulses are 2+. Central nervous system: No focal neurological deficit. Power is 5/5 in all extremities. LABORATORY REVIEW: CBC showed a WBC of 2.5, hemoglobin 9, platelets are 22. BMP showed sodium 142, potassium 6.9, chloride 114, bicarbonate 18, BUN 144, creatinine 8.8, GFR of 6.4, calcium 8.2. Microbiology: Cultures are negative so far. CURRENT MEDICATIONS: Patient's current medications were all reviewed by me. His amlodipine has been stopped. His metoprolol has been changed to metoprolol tartrate 100 mg by mouth twice a day and he continues to be on intravenous (IV) metoprolol 5 mg every 4 hours with holding parameters. He continues to be on IV Zosyn and he continues to be on IV bicarbonate drip at 125 mL/h. ASSESSMENT: 65-year-old male with history of acute glomerulonephritis, currently on prednisone. CellCept is on hold because of pancytopenia. Patient was admitted this time because of acute diverticulitis and acute renal failure with hyperkalemia. PLAN: 1. Acute renal failure superimposed on chronic kidney disease stage III. Patient's baseline creatinine is around 1.2. Because of severe hyperkalemia, patient got a catheter placed by interventional radiology after transfusion of 1 unit of platelets. Patient will be dialyzed emergently as soon as catheter is ready to be used. 2. Hyperkalemia. Patient cannot get Kayexalate because of acute diverticulitis. Potassium continues to be high. Patient will be dialyzed against a 1K bath for 2 hours today. If needed, patient will get another session of hemodialysis tomorrow. 3. Acute diverticulitis. Continue intravenous (IV) Zosyn. Continue IV bicarbonate containing fluids. Continue as needed IV morphine and Zofran. 4. Atrial fibrillation with rapid ventricular rate. I have changed the patient's metoprolol to 100 mg by mouth twice a day. He continues to be on IV as needed metoprolol every 4 hours as well. Metoprolol and hemodialysis and correction of electrolytes would help improve atrial fibrillation. Continue to monitor in the intensive care unit (ICU) at this time. 5. Anemia and thrombocytopenia. Patient has massive tender splenomegaly. His hemoglobin is 9 at this time. Continue to monitor complete blood count (CBC). Transfuse as needed for hemoglobin drop below 8. Patient's platelet count was 22,000. He required a platelet transfusion before procedure today. Patient will get another unit of platelets after tunneled catheter placement. Please get Hematology on board as well. 6. Diabetes mellitus type 2. Patient is nothing by mouth at this time. Continue insulin sliding scale. 7. Hypertension. Blood pressure is acceptable at this time. Patient is being started on metoprolol 100 mg by mouth twice a day, which would help improve blood pressure as well. No need to escalate the antihypertensive regimen in this patient who is sick and has diverticulitis. 8. Normal anion gap metabolic acidosis. It is secondary to acute renal failure. Patient will be dialyzed today against a bicarbonate of 30. Acidosis is expected to improve with hemodialysis. Plan of care was discussed with the patient's registered nurse (RN) at the bedside. MERE
--- NOTE | 2016-10-24 03:23 | IPN ---
DATE OF SERVICE: 10/23/2016 Patient seen and examined. No acute events overnight. Reported abdominal pain better. Patient's potassium continued to worsen. Patient still making urine. Denies any chest pain, pressure or discomfort. Denies any fever, chills. VITAL SIGNS: Temperature 97.8, pulse 85, respirations 20, blood pressure 127/78, pulse oximetry 95% on room air. LABORATORY: WBC 3, hemoglobin and hematocrit 8.7/26.5, platelets 28. Chemistry: Sodium 142, potassium 4.7, chloride 109, bicarbonate 23, BUN 79, creatinine 5.86. PHYSICAL EXAMINATION: GENERAL: Patient alert and oriented times three in no acute distress, pleasant. HEENT: Normocephalic, atraumatic. Pupils equal, round and reactive. CARDIAC: Irregularly irregular, tachycardia. Systolic murmur. PULMONARY: Bilaterally clear to auscultation. ABDOMEN: Soft, left lower quadrant tenderness, mild. No rebound. No guarding. Positive bowel sounds. No costovertebral angle (CVA) tenderness. EXTREMITIES: No edema bilateral lower extremities. ASSESSMENT AND PLAN: This is a 65-year-old male patient with underlying medical history of chronic kidney disease (CKD) followed by Dr. Wetzel, thrombocytopenia, recently evaluated by rheumatology in [place] for systemic lupus erythema. Patient also with history of diabetes type 2, atrial fibrillation not on anticoagulation. Reported that patient had difficult time with bowel movement and took ex-lax and that seemed to help, admitted for acute sigmoid diverticulitis with acute on chronic renal failure. 1. Acute on chronic renal failure with history of glomerulonephritis with immune complex deposition disease. Nephrology has been consulted. Patient on CellCept and prednisone as per nephrology. Tunneled hemodialysis catheter was placed after patient was given 2 units of platelets. Will followup hemoglobin and hematocrit. Patient was given bicarbonate intravenous (IV) fluids, as well as insulin D50 and Kayexalate with not much improvement. IV hydration was given. 2. Hyperkalemia secondary to acute on chronic renal failure. Patient's hemodialysis catheter was placed. Patient was given multiple cocktails including bicarbonate drips, IV fluids, as well as Kayexalate and insulin and D50 without much improvement. [employer] consulted. Will be undergoing dialysis. 3. Diverticulitis. Continue Zosyn. CT scan appreciated. 4. Thrombocytopenia. Case discussed with dye lab technician. Patient follows up with specialist in [place]. Peripheral smear appreciated. Showed consumptive process. Platelet transfusion 2 units. Additional platelets as ordered. If patient's bleeding gets worse from the dialysis catheter, will consider DDAVP for uremic bleed. 5. Hyperkalemia. Calcium, insulin, Kayexalate, bicarbonate was given. Nephrology was consulted. Undergoing dialysis. 6. Anemia. Baseline hemoglobin 8-9. Will transfuse as needed. Patient consented for transfusion. 7. Possible systemic lupus erythematosus. Patient was seen by samples and repairs preparer in [place] recently. Remained on oral prednisone. 8. Diabetes type 2. Insulin as per protocol. Patient currently nothing by mouth. Will advance the diet once patient's diverticulitis is improved. IV fluids were given. Patient was undergoing dialysis. 9. Hypertension. Continue medication with holding parameters. 10. Dyslipidemia. Continue statin. 11. Atrial fibrillation. Continue metoprolol. Eliquis discontinued by dye lab technician for thrombocytopenia. 12. Migraine headache. Continue on medication as ordered. 13. Deep venous thrombosis (DVT) prophylaxis. Sequential compression device. No pharmacological agent given thrombocytopenia. DISPOSITION: Patient remains critically ill in intensive care unit (ICU).
[2016-10-24 05:03] LABS: CALCIUM LEVEL 7.4 MG/DL (8.8-10.2); CREATININE FOR GFR 6.28 MG/DL (0.70-1.30); GLOMERULAR FILTRATION RATE 9.6 (>49); MAGNESIUM LEVEL 1.6 MG/DL (1.8-2.4); POTASSIUM SERUM 4.9 MEQ/L (3.5-5.1)
[2016-10-24 05:19] LABS: MEAN CORPUSCULAR HEMOGLOBIN 30.4 pg (27.0-33.0); MEAN CORPUSCULAR HGB CONC 32.9 g/dl (32.0-36.5); MEAN CORPUSCULAR VOLUME 92.2 fl (80.0-96.0); RED CELL DISTRIBUTION WIDTH 17.2 % (11.5-14.5); WHITE BLOOD COUNT 2.8 K/mm3 (4.0-10.0)
[2016-10-24 05:26] LABS: INR 1.23
[2016-10-24] MEDS: HumaLOG INSULIN (NovoLOG) PER UNIT SC SCH ×4 (06:00→17:07)
[2016-10-24] MEDS ORDERED: MAG SULF 1GM/100ML (MAG RUN) 1 GM in APPROPRIATE DILUENT 1 EA IV ONE (08:00)
[2016-10-24] MEDS: PIPERACILLIN/TAZOBACTAM SOD 2.25 GM in D5W MINI-BAG PLUS 50 ML IV SCH ×3 (09:53→16:49)
[2016-10-24] MEDS: PANTOPRAZOLE 40MG TAB (PROTONIX) PO SCH (09:53)
[2016-10-24] MEDS: MONTELUKAST 10 MG TAB PO SCH (09:54)
[2016-10-24] MEDS: predniSONE 10 MG TAB PO SCH (09:54)
[2016-10-24] MEDS: METOPROLOL TARTRATE 100 MG TAB PO SCH ×2 (09:54→19:35)
[2016-10-24] MEDS: methylPREDNISolone INJ 40 MG/1 ML VIAL (J2920) IV SCH ×2 (12:37→19:34)
[2016-10-24 15:43] LABS: MEAN CORPUSCULAR HEMOGLOBIN 29.9 pg (27.0-33.0); MEAN CORPUSCULAR HGB CONC 32.6 g/dl (32.0-36.5); MEAN CORPUSCULAR VOLUME 91.7 fl (80.0-96.0); RED CELL DISTRIBUTION WIDTH 17.1 % (11.5-14.5); WHITE BLOOD COUNT 2.3 K/mm3 (4.0-10.0)
--- NOTE | 2016-10-24 16:44 | IPN ---
DATE: 10/24/2016 SUBJECTIVE: The patient was seen and examined at the bedside today morning in the intensive care unit (ICU). Last 24 hours events were noted. The patient was dialyzed yesterday. He tolerated the hemodialysis procedure well. However, from the right internal jugular (IJ) tunneled hemodialysis catheter site, he kept on oozing a small amount of blood overnight. He has required five units of platelet transfusion so far. When examined this morning, his tunneled dialysis catheter dressing was all soaked in blood. The patient is otherwise hemodynamically stable. His renal function is not improving; however, his hyperkalemia improved after hemodialysis. REVIEW OF SYSTEMS: The patient denies any fevers, chills, rigors, headaches, nausea, vomiting, chest pain or shortness of breath. He does report persistent oozing of blood from the catheter site. He reports that his lower abdominal pain is getting better. All other review of systems is negative. OBJECTIVE: VITAL SIGNS: Temperature is 98.2 degrees Fahrenheit, blood pressure is 134/79, pulse is 80, respiratory rate of 18, saturating 97% on room air. INTAKE AND OUTPUT: Urine output recorded at 315 mL so far today. He got hemodialysis done yesterday, and ultrafiltration with hemodialysis was 500 mL. PHYSICAL EXAMINATION: GENERAL: The patient is awake, alert, and oriented times three. Lying in bed, in no apparent distress. HEAD/NECK: Extraocular muscles intact. Pupils equal, round, and reactive to light. Mucous membranes are moist. Neck is supple. There is no jugular venous distention (JVD). The patient has a tunneled right IJ hemodialysis catheter, and the catheter exit site is oozing small amount of blood. CARDIOVASCULAR: S1, S2, irregularly irregular. Otherwise, no murmur, rub, or gallop. RESPIRATORY: Clear to auscultation bilaterally. Bilateral equal air entry. No rales or rhonchi. ABDOMEN: Soft, mildly tender to deep palpation in the left lower quadrant. No rebound tenderness. No ascites. The patient is has tender splenomegaly. EXTREMITIES: No clubbing or cyanosis. Pulses are 2+. CENTRAL NERVOUS SYSTEM (FLASH RANGING CREWMEMBER): No focal neurological deficit. Power is 5/5 in all extremities. LABORATORY DATA: CBC showed a WBC of 2.8, hemoglobin was 8.3 this morning, which has dropped to 6.7, platelets are 38. BMP showed sodium 142, potassium 4.9, chloride 105, bicarbonate 27, BUN 81, creatinine 6.2, calcium 7.4, magnesium1.6. LDH is 400. CURRENT MEDICATIONS: The patient's intravenous (IV) fluids have been stopped. The patient got a dose of desmopressin acetate (DDAVP) 20 mcg IV times one dose overnight. He also got a dose of magnesium sulfate 1 gram IV times one dose. IV metoprolol has been stopped. The patient is on oral metoprolol 100 mg by mouth twice a day. The patient's prednisone has been stopped, and he has been started on Solu-Medrol 40 mg IV every 12 hours. 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 He was previously on prednisone and Cellcept. Cellcept had to be held because of pancytopenia. The patient was admitted this time because of acute diverticulitis and acute renal failure with hyperkalemia. PLAN: 1. Acute renal failure superimposed on chronic kidney disease stage III. The patient's baseline creatinine is 1.2. He had to be started on dialysis because of worsening renal failure and hyperkalemia. The patient got first session of hemodialysis yesterday. He will get another session of hemodialysis today for three hours with 2K dialysate bath. Ultrafiltration will be around one liter. 2. Hyperkalemia. Hyperkalemia is secondary to metabolic acidosis and acute renal failure. The patient was dialyzed against a 1K bath yesterday. Potassium is acceptable at 4.9 today. He will be dialyzed again today. Potassium is within the acceptable limit at this time. 3. Acute diverticulitis. The patient is currently on IV Zosyn. IV bicarbonate-containing fluids have been stopped. He can be started on liquid diet. Continue IV as needed morphine and Zofran. He is symptomatically getting better. 4. Atrial fibrillation with rapid ventricular rate. The patient's heart rate is significantly better at this time. IV metoprolol has been stopped since he has not required a dose since yesterday. Continue metoprolol 100 mg by mouth twice a day. He is not a candidate for anticoagulation because of active bleeding and thrombocytopenia. 5. Pancytopenia. The patient is actively oozing blood from the dialysis catheter site. I ordered one unit of packed red blood cells (PRBC) transfusion with hemodialysis. Continue to monitor complete blood count (CBC) every eight hours. The patient got five units of platelet transfusion so far. I have also ordered two units of fresh frozen plasma (FFP) transfusion. Please get hematology on board. The patient had immune complex deposition disease because of the massive splenomegaly. The patient's steroid dose has been increased to Solu-Medrol 40 mg IV twice a day. If needed, the patient might need to be transferred to [facility] for possible need for plasmapheresis if needed. 6. Diabetes mellitus type 2. The patient was nothing by mouth. He is being started on a liquid diet. Continue insulin sliding scale. 7. Hypertension. Blood pressure is acceptable at this time. It is being controlled with the current dose of metoprolol 100 mg by mouth twice a day. 8. Metabolic acidosis. It is secondary to acute renal failure. He was dialyzed yesterday. No need of IV bicarbonate at this time. Acidosis will be managed with hemodialysis at this time.
[2016-10-24] MEDS: ACETAMINOPHEN TAB 650MG DOSE (2X325MG) PO PRN (16:59)
--- NOTE | 2016-10-24 20:59 | DSES ---
DATE OF ADMISSION: 10/22/2016 DATE OF DISCHARGE: 10/24/2016 NEPHROLOGISTS: Dr. Avila and Dr. Wetzel. PRIMARY CARE PROVIDER: Temo Alberto. FINAL DIAGNOSES: 1. Acute on chronic renal failure with hyperkalemia, possible glomerulonephritis with history of immune complex disease. 2. Diverticulitis. 3. Pancytopenia. 4. Hyperkalemia. 5. Acute blood loss anemia. 6. Possible systemic lupus erythematous. 7. Type 2 diabetes. 8. Hypertension. 9. Dyslipidemia. 10. Atrial fibrillation. 11. Migraine headache. HISTORY OF PRESENT ILLNESS: This is a 65-year-old male patient with underlying medical history of chronic kidney disease (CKD) follows with Dr. Wetzel, with thrombocytopenia, recently evaluate by his flag signalman in [place] for systemic lupus erythematous. Patient with a history of diabetes, atrial fibrillation, reported symptoms of difficult time having a bowel movement, took some Ex-Lax for help, and stated there was sensation of blockage between the rectum and the bladder and later developed diarrhea in a few days, then began to have nausea, vomiting, lower abdominal pain, decreased oral intake for 2-3 days. The patient has not been able to take oral medications for the past few days and felt fatigue, no melena or hematochezia, hematuria. Denies any non-steroidal anti-inflammatory drugs (NSAIDs) or any other [id number] medication. Denies fever, chills, chest pain, headache, shortness of breath, cough, palpitations, change of bladder habits. In hospital the patient was found to be in acute on chronic renal failure with hyperkalemia. Hospitalist was called for consultation. CT scan of the abdomen showed diverticulitis. Intravenous (IV) fluids were given. Bicarbonate was given for hyperkalemia, as well as insulin and D50, calcium gluconate and calcium chloride were given to stabilize myocardium. Nephrology was consulted. The patient's basic metabolic panel was trended. The patient was maintained nothing by mouth for possible diverticulitis and bowel rest. Zosyn has been given. Unfortunately, the patient's potassium and kidney function did not improve and subsequently a tunneled hemodialysis catheter was placed and subsequently arrangements were made for the patient to have dialysis. In preparation for the dialysis catheter, the patient was transfused a total of two units of platelets, and following the procedure, the patient's dialysis port area surrounding it has been oozing blood persistently overnight. The patient's platelets, coagulation complete blood count (CBC) were followed. Currently the patient transfused a total of five units of platelets, one unit of packed red blood cells (PRBCs) and two units of fresh frozen plasma (FFP). Given that [facility] usually only carries one unit of platelets, additional units had to be ordered from [place]. Furthermore, the case was discussed with Dr. Jones and Dr. Mitzi Arshad, hone operator/oncologist, who recommended that patient should be transferred given that we do not offer plasmapheresis and usually only carry one unit of platelets , and we do not offer rheumatology, and in the event that the patient needed a splenectomy, we certainly would not be capable of safely taking care of the patient at [facility]. Case was discussed with nephrology who also agreed with the following assessment. Also, the patient's Solu-Medrol has been increased. Antibiotic Zosyn has been given. Peripheral smear shows consumptive process. Insulin was given. Diet advanced to clear. The patient currently feels comfortable but is concerned about the bleeding overnight, which has slowed down as stopped as of later this afternoon. VITAL SIGNS: Temperature 98.2, pulse 81, respirations 20, blood pressure 139/69, pulse oximetry 96% on room air. LABORATORY DATA: WBC 2.3, hemoglobin and hematocrit 6.7 over 20.5, platelets 51. Chemistry: Sodium 142, potassium 4.9, chloride 105, bicarbonate 27, BUN 81, creatinine 6.28. Lactate dehydrogenase 400. Haptoglobin less than 10. DISCHARGE MEDICATIONS: - Norvasc 5 mg by mouth daily - atorvastatin 20 mg - the patient is also on Zosyn while inpatient - acetaminophen every six hours as needed - insulin via protocol - Lopressor 100 mg by mouth twice a day - Solu-Medrol 40 mg IV twice a day - Singulair 10 mg by mouth daily - Zofran 5 mg IV every six hour as needed - Protonix 40 mg by mouth daily The patient was initially on prednisone 30 mg by mouth daily at home, currently switched to Solu-Medrol as per hematology/oncology recommendation. Given patient's condition remains tenuous with limited blood supply and limited specialty support, with no ability for plasmapheresis or splenectomy, and with only one bag of platelets, hematology/oncology and nephrology have recommended the patient to be transferred. PATIENT INSTRUCTIONS: The patient is to followup with the primary care provider, as well as nephrology , hematology/oncology, and rheumatology after discharge. Return to the hospital if symptoms worsen. Further care as per [facility]. Case was discussed with and accepted by Dr. Barton. MERE
[2016-10-24] MEDS ORDERED: HumaLOG INSULIN (NovoLOG) PER UNIT SC SCH (21:00)
== END 2016-10-24 20:46 | disposition short-term general hospital (02) | DRG 462 ==
LOC: M ED 11:00 → M ED INP 13:57 → M ICU 17:50
PROVIDERS: ADMIT Internal Medicine; ATTEND Hospitalist
PROC: 02HV33Z Insertion of Infusion Device into Superior Vena Cava, Percutaneous Approach (ICD-10-PCS; principal; 2016-10-23)
PROC: 5A1D00Z (ICD-10-PCS; 2016-10-23)
PROC: 0JH63XZ Insertion of Tunneled Vascular Access Device into Chest Subcutaneous Tissue and Fascia, Percutaneous Approach (ICD-10-PCS; 2016-10-23)
PROC: 30233R1 Transfusion of Nonautologous Platelets into Peripheral Vein, Percutaneous Approach (ICD-10-PCS; 2016-10-23)
PROC: 30233N1 Transfusion of Nonautologous Red Blood Cells into Peripheral Vein, Percutaneous Approach (ICD-10-PCS; 2016-10-24)
PROC: 30233K1 Transfusion of Nonautologous Frozen Plasma into Peripheral Vein, Percutaneous Approach (ICD-10-PCS; 2016-10-24)
DX: N05.9 Unspecified nephritic syndrome with unspecified morphologic changes (principal); E87.2 Acidosis; D89.9 Disorder involving the immune mechanism, unspecified; D69.6 Thrombocytopenia, unspecified; N17.9 Acute kidney failure, unspecified; D62 Acute posthemorrhagic anemia; N18.3 Chronic kidney disease, stage 3 (moderate); M32.9 Systemic lupus erythematosus, unspecified; I48.91 Unspecified atrial fibrillation; R16.1 Splenomegaly, not elsewhere classified; E87.5 Hyperkalemia; K57.92 Diverticulitis of intestine, part unspecified, without perforation or abscess without bleeding; I12.9 Hypertensive chronic kidney disease with stage 1 through stage 4 chronic kidney disease, or unspecified chronic kidney disease; G43.909 Migraine, unspecified, not intractable, without status migrainosus; E11.9 Type 2 diabetes mellitus without complications; E78.5 Hyperlipidemia, unspecified; Z79.899 Other long term (current) drug therapy; Z82.49 Family history of ischemic heart disease and other diseases of the circulatory system; Z81.1 Family history of alcohol abuse and dependence; Z79.52 Long term (current) use of systemic steroids; Z95.5 Presence of coronary angioplasty implant and graft; Z79.84 Long term (current) use of oral hypoglycemic drugs

== ENCOUNTER → 2017-01-12 | Outpatient (REF) | payer MEDICARE ==
[~2017-01-12] MED LIST changes: +AMLO5TAB2; +AMLO5TAB2 PO; +CALC1CAP PO; +CALC1CAP31; +CALC1CAP31 PO; +EPOG2000; +FERR1TAB8; +FERR1TAB8 PO; +FURO20TA2; +FURO20TA2 PO; +GLIM2TAB; +GLIM2TAB PO; +METH16TA2 PO; -METO100T PO; +METO100T5; +METO100T5 PO; +MONT10TA2; +MONT10TA2 PO; +PANT40TA2 PO; +PRED20TA; +PRED20TA PO; +RANI150T PO; +RANI75TA9 PO; +RANITIDINE; +SING10TA32 PO; +SUMA100T2 PO; +VITATAB11 PO
[2017-01-15 14:14] LABS: MYELOPEROXIDASE ANTIBODY <9.0 U/mL (0.0-9.0); PR3 ANTIPROTEINASE ANTIBODIES 44.1 U/mL (0.0-3.5)
== END ==
LOC: M LAB REF 16:55
PROVIDERS: ATTEND Internal Medicine Nephrology
DX: M31.31 Wegener's granulomatosis with renal involvement (principal); N00.8 Acute nephritic syndrome with other morphologic changes

== ENCOUNTER 2017-01-13 11:10 | Day surgery (SDC) | payer MEDICARE ==
[~2017-01-13] VITALS: Ht 175.3 cm; Wt 77.1 kg
[2017-01-13] MEDS ORDERED: BUPIVACAINE HCL 0.5% 30 ML VIAL As Ordered ONE (12:10)
[2017-01-13] MEDS ORDERED: ISOVUE-300 61% 50ML VIAL (Q9967) As Ordered ONE (12:10)
[2017-01-13] MEDS ORDERED: HEPARIN SOD (PORCINE) 5000 UNITS/ML VIAL As Ordered ONE (12:10)
[2017-01-13] MEDS ORDERED: LIDOCAINE 1% SDV INJ 30 ML VIAL As Ordered ONE (12:10)
[2017-01-13] MEDS ORDERED: NS 1,000 ML IV SCH (12:30)
[2017-01-13] MEDS ORDERED: LR 1,000 ML IV ONE (12:30)
[2017-01-13] MEDS ORDERED: KETAMINE HCL 200 MG/20 ML VIAL As Ordered ONE (14:40)
[2017-01-13] MEDS ORDERED: fentaNYL 100 MCG/2 ML INJECTION (J3010) As Ordered ONE (14:40)
[2017-01-13] MEDS ORDERED: MIDAZOLAM INJ 2 MG/2 ML VIAL (J2250) As Ordered ONE ×2 (14:40→14:51)
[2017-01-13] MEDS ORDERED: LIDOCAINE 2% INJ 100 MG/5 ML SDV (FOR ANES.) As Ordered ONE (15:09)
[2017-01-13] MEDS ORDERED: PROPOFOL 200 MG/20 ML VIAL As Ordered ONE (15:09)
[2017-01-13] MEDS ORDERED: fentaNYL 100 MCG/2 ML INJECTION (J3010) IV PRN (15:45)
[2017-01-13] MEDS ORDERED: PERCOCET 5MG/325MG TAB PO PRN (15:45)
[2017-01-13] MEDS ORDERED: LR 1,000 ML IV SCH (15:45)
[2017-01-13 16:35] VITALS: BP 165/81
--- NOTE | 2017-01-14 11:49 | ROOPDOC ---
[facility] Report Of Operation Report of Operation DATE OF PROCEDURE: 01/13/17 Preoperative diagnosis: End-stage renal disease requiring hemodialysis access, right internal jugular vein PermCath. Postoperative diagnosis: End-stage renal disease requiring hemodialysis access right internal jugular vein PermCath. Procedure: Left radiocephalic arteriovenous fistula creation Surgeon: Dr. Diann Kevin M.D. Supervisor Keymodule Assembly: None Indication: Patient is a 66-year-old white male who requires access for hemodialysis. Patient is currently dialyzing through a right internal jugular vein PermCath. Patient was evaluated and felt to be a good candidate for a left radiocephalic arteriovenous fistula. Risks benefits and alternative treatment options were discussed with the patient. Benefits and work included but were not limited to access for hemodialysis. Alternative treatment options included but were not limited to no intervention. Risks included but were not limited to infection, bleeding, worsening of patient's renal function, failure of arterial venous initially to maintain patency with thrombosis, failure of arterial venous fistula mature requiring secondary intervention, possible need for further open surgical intervention, steal syndrome, cerebrovascular accident , myocardial infarction, pulmonary embolus, DVT, loss of limb, loss of life and poor outcome. Patient's questions were answered, and patient agrees to proceed with surgical intervention with creation of a left radiocephalic arteriovenous fistula. Anesthesia: Local monitored anesthesia care Estimated blood loss: 20 cc IV fluids: 250 cc Heparin: None Protamine: None Complications: None Drains: None Specimens: None Implants: None Procedure: Patient was taken to the operating room, placed supine on the operating room table and prepped and draped in a standard surgical fashion. A time out was then completed with all the staff in the room with confirmation of the correct procedure, patient, and correct laterality. The skin overlying the left radial artery and cephalic vein at the wrists were then anesthetized with 1 % lidocaine mixed with 0.5% Marcaine. The incision was then made over the cephalic vein which had been marked with a tourniquet and place on the forearm. The cephalic vein was then sharply dissected free and clamped as far distal as possible. The cephalic vein was then transected with the remnant distally ligated using an a 3-0 silk suture. The radial artery was then sharply dissected free through a second incision made overlying the radial artery. Vessel loops were placed around the radial artery. The cephalic vein was then dilated with heparinized saline and noted to flushed easily. The cephalic vein was then brought to the radial artery through a subcutaneous tunnel between the 2 incisions. The cephalic vein was then anastomosed to the radial artery in an end to side fashion after an arteriotomy was made in the radial artery after clamping proximally and distally. Prior to clamping the radial artery the patient did not require systemic anticoagulations due to decreased platelets and received no heparin for systemic anti-coagulation. Once the anastomosis was completed and good flow was noted in the cephalic vein and the distal radial artery with ultrasound evaluation, stasis was obtained and the incisions were closed using 3-0 Monocryl suture in a running subcuticular fashion. All instrument, sponge and needle counts were correct at the end of the case. There was good flow noted in the fistula. The left hand was well perfused after creation of the radiocephalic arteriovenous fistula. Dr. Kevin was present for and directed the entire case. There were no complications. Patient was transferred to the recovery room awake, alert, extubated and in stable condition. Aleksandr Kevin MD Jan 14, 2017 11:49
== END 2017-01-13 16:40 | disposition home or self-care (01) ==
LOC: M SDC 11:10 → MERGE 12:30 → M SDC 16:40
PROVIDERS: ATTEND Surgery Vascular Surgery
DX: N18.6 End stage renal disease (principal); I48.91 Unspecified atrial fibrillation; I10 Essential (primary) hypertension; I25.10 Atherosclerotic heart disease of native coronary artery without angina pectoris; I34.8 Other nonrheumatic mitral valve disorders; E11.9 Type 2 diabetes mellitus without complications; I73.9 Peripheral vascular disease, unspecified; M32.10 Systemic lupus erythematosus, organ or system involvement unspecified; Z79.899 Other long term (current) drug therapy; Z99.2 Dependence on renal dialysis
CPT/HCPCS: 36415; 36820; 84132; J2250; J3010

== ENCOUNTER → 2017-01-19 | Outpatient (REF) | payer MEDICARE ==
[2017-01-19 21:19] LABS: COMPLEMENT C3 96.5 MG/DL (90-180)
== END ==
LOC: M LAB REF 17:59
PROVIDERS: ATTEND Internal Medicine Nephrology
DX: N00-N99 Diseases of the genitourinary system (principal); M31.31 Wegener's granulomatosis with renal involvement

== ENCOUNTER → 2017-01-26 | Outpatient (REF) | payer MEDICARE ==
[2017-01-30 00:07] LABS: MYELOPEROXIDASE ANTIBODY <9.0 U/mL (0.0-9.0); PR3 ANTIPROTEINASE ANTIBODIES 20.5 U/mL (0.0-3.5)
== END ==
LOC: M LAB REF 16:53
PROVIDERS: ATTEND Internal Medicine Nephrology
DX: M31.31 Wegener's granulomatosis with renal involvement (principal); N00.8 Acute nephritic syndrome with other morphologic changes

== ENCOUNTER → 2017-01-29 | Outpatient (CLI) | payer MEDICARE ==
[~2017-01-29] MED LIST changes: +ISOVUE-300 61% 50ML VIAL (Q9967) As Ordered ONE
--- NOTE | 2017-02-16 12:47 | REPKIM ---
DATE OF PROCEDURE: 01/29/2017 ATTENDING SURGEON: Dr. Diann Kevin CHECKER: RT Rafael PREOPERATIVE DIAGNOSES: End-stage renal disease. Non-maturing left radiocephalic arterial venous fistula. Right internal jugular vein PermCath. POSTOPERATIVE DIAGNOSES: End-stage renal disease. Non-maturing left radiocephalic arterial venous fistula. Right internal jugular vein PermCath. PROCEDURE: Left radiocephalic arteriovenous fistulogram. INDICATION: Patient is a 66-year-old male who underwent creation of a left radiocephalic arteriovenous fistula, which is post-trial and non-maturing and not yet ready for use for hemodialysis access. Patient will undergo a fistulogram with possible angioplasty and/or stent in order to maintain patency of the fistula and increase use of the fistula. Risks, benefits, and alternative treatment options were discussed with the patient. Alternative treatment options included, but were not limited to, no intervention. Benefits included, but were not limited to, improved size of flow through the fistula making the fistula useable for hemodialysis and allowing removal of the PermCath. Risks, included, but were not limited to, infection, bleeding, loss of arteriovenous access, steal syndrome, possible need for further surgical intervention, cerebrovascular accident, myocardial infarction, pulmonary embolus, deep venous thrombosis (DVT), loss of limb, loss of life, and poor outcome. Patient understands, accepts these risks, and consents to proceed. Patient's questions were answered. Patient voices understanding of these risks, benefits, and alternative treatment options. ANESTHESIA: Local with 1 mL of 2% lidocaine. CONTRAST: 2 mL. COMPLICATIONS: None. DRAINS: None. SPECIMENS: None. IMPLANTS: None. PROCEDURE: Patient was taken to the angiography suite, placed flat on the angiography room table, and the left upper extremity was prepped and draped in a standard surgical fashion. A time-out was conducted by myself and the team members in the room confirming the correct patient, procedure, and laterality. The radiocephalic arteriovenous fistula was then cannulated with a micropuncture needle after anesthetizing the overlying skin with 1% lidocaine. The micropuncture wire was advanced through the micropuncture needle which was upsized to a micropuncture sheath. A fistulogram was performed showing the cephalic vein to be widely patent to the antecubital fossa where there was dual outflow into the upper arm and centrally. The micropuncture sheath was removed, manual compression applied to the puncture site. All instruments, sponge, and needle counts were correct at the end of the case. There were no complications. Dr. Kevin was present for and directed the entire case. Patient was transferred to the holding area and subsequently discharged in stable condition. RADIOLOGIC SUPERVISION AND INTERPRETATION: The cephalic vein from the puncture site at the wrist to the antecubital fossa was widely patent with good flow into the deep and superficial venous systems in the upper arm and centrally. No intervention was required at this time.
== END | disposition home or self-care (01) ==
LOC: M IRPRO 08:34
PROVIDERS: ATTEND Surgery Vascular Surgery
DX: T82.590A Other mechanical complication of surgically created arteriovenous fistula, initial encounter (principal); N18.6 End stage renal disease
CPT/HCPCS: 36901; C1894; Q9967

== ENCOUNTER → 2017-02-09 | Outpatient (REF) | payer MEDICARE ==
[~2017-02-09] MED LIST changes: -ISOVUE-300 61% 50ML VIAL (Q9967) As Ordered ONE
[2017-02-09 18:52] LABS: COMPLEMENT C3 94.4 MG/DL (90-180); COMPLEMENT C4 25.1 MG/DL (10-40)
[2017-02-12 14:15] LABS: MYELOPEROXIDASE ANTIBODY <9.0 U/mL (0.0-9.0); PR3 ANTIPROTEINASE ANTIBODIES 12.6 U/mL (0.0-3.5)
== END ==
LOC: M LAB REF 11:00
PROVIDERS: ATTEND Internal Medicine Nephrology
DX: M31.31 Wegener's granulomatosis with renal involvement (principal); N00.8 Acute nephritic syndrome with other morphologic changes

== ENCOUNTER 2017-02-22 12:17 | Observation (INO) | payer MEDICARE ==
[~2017-02-22] VITALS: Ht 175.3 cm; Wt 81.1 kg
[2017-02-22] MEDS ORDERED: ISOVUE-300 61% 50ML VIAL (Q9967) As Ordered ONE ×2 (13:10→15:18)
[2017-02-22] MEDS ORDERED: fentaNYL 100 MCG/2 ML INJECTION (J3010) As Ordered ONE ×4 (13:10→16:44)
[2017-02-22] MEDS ORDERED: MIDAZOLAM INJ 2 MG/2 ML VIAL (J2250) As Ordered ONE ×4 (13:10→16:44)
[2017-02-22] MEDS ORDERED: ONDANSETRON 4 MG TAB (S0181) PO ONE (19:00)
[2017-02-22] MEDS ORDERED: NORCO, ANEXSIA 5/325MG TABLET (HYDROcodone/ACETAMINOPHEN) PO PRN (20:15)
[2017-02-22 20:30] VITALS: BP 140/79
[2017-02-22] MEDS ORDERED: ATORVASTATIN 20 MG TAB PO SCH (21:00)
[2017-02-22] MEDS ORDERED: MONTELUKAST 10 MG TAB PO SCH (21:00)
[2017-02-22] MEDS: CALCIUM ACETATE 667 MG GELCAP PO SCH (21:00)
[2017-02-22] MEDS: FAMOTIDINE 20 MG TAB PO SCH (23:13)
[2017-02-22] MEDS: METOPROLOL TARTRATE 100 MG TAB PO SCH (23:13)
[2017-02-22] MEDS: GLIMEPIRIDE 2 MG TAB PO SCH (23:13)
[2017-02-23 06:00] VITALS: BP 135/79
[2017-02-23 08:00] VITALS: BP 127/80
[2017-02-23] MEDS ORDERED: VITAMIN B COMPLEX/VIT C CAP PO SCH (09:00)
[2017-02-23] MEDS ORDERED: PANTOPRAZOLE 40MG TAB (PROTONIX) PO SCH (09:00)
[2017-02-23] MEDS ORDERED: methylPREDNISolone 4 MG TAB PO SCH (09:00)
[2017-02-23 09:05] VITALS: BP 127/80
[2017-02-23] MEDS: METOPROLOL TARTRATE 100 MG TAB PO SCH (09:05)
[2017-02-23] MEDS: CALCIUM ACETATE 667 MG GELCAP PO SCH (09:07)
[2017-02-23] MEDS: FAMOTIDINE 20 MG TAB PO SCH (09:08)
[2017-02-23] MEDS: GLIMEPIRIDE 2 MG TAB PO SCH (09:08)
--- NOTE | 2017-02-23 23:23 | DS.PDOC ---
Discharge Summary General Date of Admission Feb 22, 2017 at 20:10 Date of Discharge 02/23/2017 Attending Physician: Aleksandr Kevin MD Discharge Summary PROCEDURES PERFORMED DURING STAY: Left radiocephalic intravenous fistulogram with angioplasty. ADMITTING DIAGNOSES: 1. End-stage renal disease. 2. dysfunctional left radiocephalic arterial venous fistula with non-maturation. DISCHARGE DIAGNOSES: 1. End-stage renal disease. 2. dysfunctional left radiocephalic arterial venous fistula with non-maturation. COMPLICATIONS/CHIEF COMPLAINT: Renal Failure. HISTORY OF PRESENT ILLNESS: The patient underwent a left radiocephalic arteriovenous fistulogram with angioplasty and had nausea and vomiting post procedure and was admitted for observation.. HOSPITAL COURSE: Patient did well overnight no longer has any nausea or vomiting and pain is well controlled patient is stable for discharge. DISCHARGE MEDICATIONS: Please see below. ALLERGIES: Please see below. PHYSICAL EXAMINATION ON DISCHARGE: VITAL SIGNS: Please see below. GENERAL: Lying in bed comfortably HEENT: Normal NECK: Supple with no carotid bruits CARDIOVASCULAR EXAMINATION: Regular rate and rhythm RESPIRATORY EXAMINATION: Clear to auscultation bilaterally ABDOMINAL EXAMINATION: Soft nontender nondistended EXTREMITIES: Left radiocephalic return venous fistula is patent with a strong thrill palpable SKIN: Warm well perfused NEUROLOGICAL EXAMINATION: Awake alert oriented x3 with no focal deficits PSYCHIATRIC EXAMINATION: Normal LABORATORY DATA: Please see below. PROGNOSIS: Excellent ACTIVITY: As tolerated. DIET: Renal diet. DISCHARGE PLAN: Patient will be discharged to home and will begin using the left radiocephalic arteriovenous fistula in 1 week. DISPOSITION: 01 Home, Self-Care. DISCHARGE INSTRUCTIONS: 1. removed dressings in 24 hours and may begin using left arm AV fistula in 1 week. DISCHARGE CONDITION: Stable. TIME SPENT ON DISCHARGE: Greater than 30 minutes. Vital Signs/I&Os Vital Signs Date Time Temp Pulse Resp B/P (MAP) Pulse Ox O2 Delivery O2 Flow Rate FiO2 02/23/17 09:05 78 127/80 02/23/17 08:00 98.2 20 100 Room Air I&O- Last 24 Hours up to 6 AM 02/23/17 05:59 Intake Total 135 ml Balance 135 ml Discharge Medications Scheduled Atorvastatin Calcium (Atorvastatin Calcium) 20 Mg Tab, 20 MG PO QHS, (Reported) B1/B2/B3/B5/B6 (Vitamin B Complex) 1 Tab Tab, 1 TAB PO DAILY, (Reported) vitamin c and folic acid Calcitriol (Calcitriol) 0.25 Mcg Cap, 0.25 MCG PO with dialysis, (Reported) Calcium Acetate (Calcium Acetate) 667 Mg Cap, 2 CAP PO TID, (Reported) Epoetin Ankit (Epogen) 2,000 Unit/Ml Inj, Unknown Dose with dialysis, (Reported) Glimepiride (Glimepiride) 2 Mg Tab, 2 MG PO BID, (Reported) Methylprednisolone (Methylprednisolone) 16 Mg Tab, 16 MG PO DAILY, (Reported) Metoprolol Tartrate (Metoprolol Tartrate) 100 Mg Tab, 150 MG PO BID, (Reported) Montelukast Sodium (Montelukast Sodium) 10 Mg Tab, 10 MG PO QHS, (Reported) Pantoprazole Sodium (Pantoprazole Sodium) 40 Mg Tab, 40 MG PO DAILY, (Reported) Ranitidine HCl (Ranitidine HCl) 150 Mg Tab, 1 TAB PO BID, (Reported) Scheduled PRN Sumatriptan Succinate (Sumatriptan Succinate) 100 Mg Tab, 100 MG PO PRN PRN for MIGRAINE, (Reported) Allergies Coded Allergies: No Known Drug Allergy (Unverified Allergy, Unknown, 01/13/17) Aleksandr Kevin MD Feb 23, 2017 23:23
--- NOTE | 2017-03-24 10:39 | RO ---
DATE OF PROCEDURE: 02/22/2017 PREPROCEDURE DIAGNOSIS: End stage renal disease. Dysfunction left brachiocephalic arteriovenous fistula. Atrial fibrillation. Retrograde left radial artery angiogram. POSTPROCEDURE DIAGNOSIS: End stage renal disease. Dysfunction left brachiocephalic arteriovenous fistula. Atrial fibrillation. PROCEDURE: Left brachiocephalic arteriovenous fistulogram, left cephalic vein angioplasty with 6 x 200 mm balloon. SURGEON: Dr. Aleksandr Kevin. WORM GROWER: ANESTHESIA: Local with sedation with 3 mg of Versed, 150 mcg of Fentanyl and 1.5 mL of 2% lidocaine. SEDATION TIME: From 1410 p.m. to 1450 p.m. with the sedation and cardiopulmonary monitoring performed by myself and the nurse within the room. The procedure was performed under my direct supervision and direction and I was present for the entire case. FLUORO TIME: 6.7 minutes. CONTRAST: 10 mL. ESTIMATED BLOOD LOSS: COMPLICATIONS: None. DRAINS: None. SPECIMENS: None. IMPLANTS: None. INDICATION: The patient is a 66-year-old male with end stage renal disease and creation of a left brachiocephalic arteriovenous fistula which has been non-maturing and unusable for hemodialysis access. Patient will undergo a fistulogram with possible angioplasty and/or stent. Risks, benefits and alternative options were discussed with the patient. PROCEDURE: The patient was taken to the angiography suite and placed supine on the angiography room table and then prepped and draped in a standard surgical fashion. The was cannulated with a micropuncture needle after anesthetizing the overlying skin with 2% lidocaine. A micropuncture wire was advanced through the micropuncture needle which was upsized to a micropuncture sheath. A fistulogram was performed showing stenosis in the cephalic vein shortly after the cannulation site of approximately 60%. The remainder of the cephalic vein was patent with some small collaterals coursing into the deeper venous system. Cephalic vein was angioplastied with a 6 x 200 mm balloon along its course with a retrograde radial artery angiogram performed showing no intervention required proximally. The followup fistulogram showed resolution of the stenosis with good flow through the fistula. The sheath was removed and manual compression applied at the puncture site for hemostasis. Dressings were then applied. Patient tolerated the procedure well. All instrument, sponge and needle counts were correct at the end of the case. There were no complications. Dr. Kevin was present for and directed the entire case.
== END 2017-02-23 14:51 | disposition home or self-care (01) ==
LOC: M IRPRO 12:17 → M MS4PR 20:10
PROVIDERS: ADMIT Surgery Vascular Surgery; ATTEND Surgery Vascular Surgery
DX: T82.590A Other mechanical complication of surgically created arteriovenous fistula, initial encounter (principal); I87.1 Compression of vein; N18.6 End stage renal disease; I48.91 Unspecified atrial fibrillation
CPT/HCPCS: 36902; 99152; 99153; C1725; C1769; C1887; C1894; G0378; J2250; J3010; Q9967

== ENCOUNTER → 2017-02-25 | Outpatient (REF) | payer MEDICARE ==
[2017-02-25 20:00] LABS: COMPLEMENT C4 26.9 MG/DL (10-40)
[2017-03-02 00:06] LABS: MYELOPEROXIDASE ANTIBODY <9.0 U/mL (0.0-9.0); PR3 ANTIPROTEINASE ANTIBODIES 22.7 U/mL (0.0-3.5)
== END ==
LOC: M LAB REF 16:49
PROVIDERS: ATTEND Internal Medicine Nephrology
DX: M31.31 Wegener's granulomatosis with renal involvement (principal); N00.8 Acute nephritic syndrome with other morphologic changes

== ENCOUNTER → 2017-03-09 | Outpatient (REF) | payer MEDICARE ==
[2017-03-09 19:16] LABS: COMPLEMENT C3 99.8 MG/DL (90-180); COMPLEMENT C4 23.8 MG/DL (10-40)
[2017-03-13 00:07] LABS: MYELOPEROXIDASE ANTIBODY <9.0 U/mL (0.0-9.0); PR3 ANTIPROTEINASE ANTIBODIES 24.6 U/mL (0.0-3.5)
== END ==
LOC: M LAB REF 17:03
PROVIDERS: ATTEND Internal Medicine Nephrology
DX: M31.31 Wegener's granulomatosis with renal involvement (principal); N00.8 Acute nephritic syndrome with other morphologic changes

== ENCOUNTER → 2017-03-23 | Outpatient (REF) | payer MEDICARE ==
[2017-03-23 15:35] LABS: COMPLEMENT C3 95.4 MG/DL (90-180); COMPLEMENT C4 26.9 MG/DL (10-40)
[2017-03-26 00:08] LABS: MYELOPEROXIDASE ANTIBODY <9.0 U/mL (0.0-9.0); PR3 ANTIPROTEINASE ANTIBODIES 15.7 U/mL (0.0-3.5)
== END ==
LOC: M LAB REF 13:12
PROVIDERS: ATTEND Internal Medicine Nephrology
DX: M31.31 Wegener's granulomatosis with renal involvement (principal); N00.8 Acute nephritic syndrome with other morphologic changes

== ENCOUNTER → 2017-04-27 | Outpatient (REF) | payer MEDICARE ==
[2017-04-27 19:17] LABS: COMPLEMENT C4 24.6 MG/DL (10-40)
[2017-05-01 00:07] LABS: MYELOPEROXIDASE ANTIBODY <9.0 U/mL (0.0-9.0); PR3 ANTIPROTEINASE ANTIBODIES 14.2 U/mL (0.0-3.5)
== END ==
LOC: M LAB REF 17:35
PROVIDERS: ATTEND Internal Medicine Nephrology
DX: M31.31 Wegener's granulomatosis with renal involvement (principal); N00.8 Acute nephritic syndrome with other morphologic changes

== ENCOUNTER → 2017-05-25 | Outpatient (REF) | payer MEDICARE ==
[2017-05-25 17:57] LABS: COMPLEMENT C4 26.9 MG/DL (10-40)
[2017-05-29 02:10] LABS: MYELOPEROXIDASE ANTIBODY <9.0 U/mL (0.0-9.0); PR3 ANTIPROTEINASE ANTIBODIES 40.7 U/mL (0.0-3.5)
== END ==
LOC: M LAB REF 17:33
PROVIDERS: ATTEND Internal Medicine Nephrology
DX: M31.31 Wegener's granulomatosis with renal involvement (principal); N00.8 Acute nephritic syndrome with other morphologic changes

== ENCOUNTER → 2017-06-01 | Outpatient (CLI) | payer MEDICARE ==
[~2017-06-01] MED LIST changes: +ALTEPLASE 2 MG/2 ML VIAL (J2997 PER 1MG) As Ordered ONE; +HEPARIN SOD (PORCINE) 5000 UNITS/ML VIAL As Ordered ONE; +ISOVUE-300 61% 50ML VIAL (Q9967) As Ordered ONE; +LOPR1TAB6 PO; +METH4TAB28 PO; +MIDAZOLAM INJ 2 MG/2 ML VIAL (J2250) As Ordered ONE; +ONDANSETRON 4MG/2ML VIAL (J2405) As Ordered ONE; +TYLE325T5 PO; +fentaNYL 100 MCG/2 ML INJECTION (J3010) As Ordered ONE
--- NOTE | 2017-06-03 09:25 | REPIR ---
DATE OF PROCEDURE: 06/01/2017 PREPROCEDURE DIAGNOSES: Endstage renal disease, thrombosed left radiocephalic, arteriovenous fistula. Diabetes mellitus. POSTPROCEDURE DIAGNOSES: Endstage renal disease, thrombosed left radiocephalic, arteriovenous fistula. Diabetes mellitus. PROCEDURE: Installation of thrombolytic with 6 mg of TPA and 5000 units of heparin into thrombosed left radiocephalic arteriovenous fistula. Left radiocephalic arteriovenous fistulogram selective, left radial artery catheter placement angiogram, left radial artery angioplasty with 4 x 200 mm balloon. Left cephalic vein angioplasty with 4 x 200 mm balloon. Recanalization of occluded left cephalic vein in forearm. Left cephalic vein angioplasty 5 x 200 balloon, left basilic vein angioplasty with 5 x 200 balloon. SURGEON: Dr. Diann Kevin. WAREHOUSE RECEIVER: Marilia Delong. ANESTHESIA: Local with sedation with 2 mg versed, 100 mcg fentanyl and 2 mL of 2% lidocaine. Sedation time was from 11:56 a.m. to 12:50 p.m. with a total sedation time of 54 minutes with the sedation administered by myself and the cardiopulmonary monitoring performed by the RN in the room. I was present for and directed the entire case. FLUORO TIME: 2.222 minutes. CONTRAST: 3 mL. COMPLICATIONS: None. DRAINS: None. SPECIMENS: None. IMPLANTS: None. INDICATION: The patient is a 66-year-old with endstage renal disease who underwent creation of a left radiocephalic arteriovenous fistula which required angioplasty for maturation. The patient began using his fistula with some difficulty and had hematoma formation and extravasation after which the fistula thrombosed. The patient now follows up for stented recanalization and thrombolysis of his left radiocephalic arteriovenous fistula. The risks, benefits and alternative treatment options were discussed with the patient. Alternative treatment options included but were not limited to no intervention. Benefits included but were not limited to recanalization and reopening of the fistula, which will be usable for hemodialysis access. Risks included but were not limited to infection, bleeding, steel syndrome, possible need for open surgical intervention, failure of arteriovenous fistula to maintain patency with thrombosis, cerebrovascular accident, myocardial infarction, pulmonary embolus, deep venous thrombosis, loss of limb, loss of life and poor outcome. The patient understands and accepts these risks and consents to proceed. The patient's questions were answered. The patient voices understanding of these risks, benefits and alternative treatment options, accepts these risks and agrees to proceed. DESCRIPTION OF PROCEDURE: The patient was taken to the angiography suite, placed supine on the angiography room table and then the left upper extremity was prepped and draped in a standard surgical fashion. The cephalic vein at the wrist was opened for a short distance and this was cannulated with a micropuncture needle where there was a pulse within the cephalic vein, after anesthetizing the overlying skin with 2% lidocaine. The micropuncture wire was advanced to the micropuncture needle which was upsized to a micropuncture sheath after which the cephalic vein was recanalized using an angle glide wire with re-entry into the cephalic vein at the antecubital fossa which then coursed into the basilic vein. The basilic vein and cephalic vein along their length were angioplastied with a 5 x 200 balloon after being injected with TPA and heparin. The fistula was then cannulated and directed towards the arteriovenous anastomosis. A catheter was placed in the radial artery and an angiogram was performed showing stenosis at the arteriovenous anastomosis, which was approximately 80%. The radial artery was also noted to be small. The radial artery from the mid forearm down and the cephalic vein was then angioplastied with a 4 x 200 balloon with a completion fistulogram showing good flow through the radial artery into the fistula and into the basilic vein and centrally. The catheters and wires were removed. The sheath were removed and #2-0 Prolene sutures were placed at the puncture site for hemostasis. Dressings were then applied. The patient tolerated the procedure well. All instrument, sponge and needle counts were correct at the end of the case. There were no complications. Dr. Kevin was present for and directed the entire case. The patient was transferred to the holding area then subsequently discharged in stable condition. RADIOLOGIC SUPERVISION INTERPRETATION: The fistula was cannulated injected with TPA and heparin and then the cephalic vein, which was occluded, was recanalized after which the cephalic vein and the basilic vein were angioplastied with a 5 x 200 balloon. A second cannulation was performed and directed towards the arterial anastomosis and a catheter was placed in the radial artery with a radial artery angiogram and runoff performed showing stenosis at the arteriovenous anastomosis and in each replicated portion of the cephalic vein at the wrist. The cephalic vein and radial artery were angioplastied with a 4 x 200 balloon with a completion radial artery angiogram with runoff showing resolution of the stenoses with improved size and flow through the radial artery into the cephalic vein which was then patent to the basilic vein and into the upper arm and centrally.
== END | disposition home or self-care (01) ==
LOC: M IRPRO 09:43
PROVIDERS: ATTEND Surgery Vascular Surgery
DX: T82.868A Thrombosis due to vascular prosthetic devices, implants and grafts, initial encounter (principal); E11.22 Type 2 diabetes mellitus with diabetic chronic kidney disease; N18.6 End stage renal disease
CPT/HCPCS: 36905; 99152; 99153; C1725; C1769; C1887; C1894; J2250; J2405; J2997; J3010; Q9967

== ENCOUNTER 2017-06-06 08:42 | Inpatient (IN) | payer MEDICARE ==
[2017-06-06] MEDS: NS 1,000 ML IV (09:19)
[2017-06-06 09:23] LABS: BASO % 0.1 % (0.0-1.0); EOS % 0.1 % (0.0-3.0); HEMATOCRIT 30.8 % (42.0-52.0); HEMOGLOBIN 10.4 g/dl (14.0-18.0); IMMATURE GRANULOCYTE # 0.1 10^3/uL (0-0); IMMATURE GRANULOCYTE % 0.6 % (0-0); LYMPH # 1.4 10^3/uL (1.5-4.5); LYMPH % 9.6 % (24.0-44.0); MEAN CORPUSCULAR HEMOGLOBIN 33.4 pg (27.0-33.0); MEAN CORPUSCULAR HGB CONC 33.8 g/dl (32.0-36.5); MONO # 0.7 10^3/uL (0.0-0.8); MONO % 4.6 % (0.0-5.0); NEUTROPHILS # 12.1 10^3/uL (1.8-7.7); PLATELET COUNT, AUTOMATED 178 10^3/uL (150-450); RED BLOOD COUNT 3.11 10^6/uL (4.30-6.10); RED CELL DISTRIBUTION WIDTH 16.3 % (11.5-14.5); WHITE BLOOD COUNT 14.2 10^3/uL (4.0-10.0)
[2017-06-06 09:34] LABS: INR 1.12; PROTHROMBIN TIME 14.5 SECONDS (12.4-14.5)
[2017-06-06 09:35] LABS: PARTIAL THROMBOPLASTIN TIME 33.9 SECONDS (26.8-37.9)
[2017-06-06 09:44] LABS: ALBUMIN 3.6 GM/DL (3.2-5.2); ALBUMIN/GLOBULIN RATIO 0.92 (1.00-1.93); ALKALINE PHOSPHATASE 60 U/L (45-117); ALT/SGPT 20 U/L (12-78); AMYLASE 117 U/L (25-115); ANION GAP 8 MEQ/L (8-16); AST/SGOT 18 U/L (7-37); BILIRUBIN,DIRECT 0.2 MG/DL (0.0-0.2); BILIRUBIN,TOTAL 1.4 MG/DL (0.2-1.0); BLOOD UREA NITROGEN 29 MG/DL (7-18); CARBON DIOXIDE LEVEL 32 MEQ/L (21-32); CHLORIDE LEVEL 97 MEQ/L (98-107); CREATININE FOR GFR 4.64 MG/DL (0.70-1.30); GLOMERULAR FILTRATION RATE 13.6 (>49); GLUCOSE, FASTING 56 MG/DL (80-110); LIPASE 206 U/L (73-393); POTASSIUM SERUM 3.6 MEQ/L (3.5-5.1); SODIUM LEVEL 137 MEQ/L (136-145); TOTAL PROTEIN 7.5 GM/DL (6.4-8.2)
[2017-06-06] MEDS: MORPHINE 2 MG/ML 1ML SYRINGE IV ×2 (10:15→14:18)
[2017-06-06] MEDS: ONDANSETRON 4MG/2ML VIAL (J2405) IV (10:15)
[2017-06-06] MEDS ORDERED: ISOVUE-370 76% 100ML VIAL (Q9967) As Ordered (11:02)
[2017-06-06] MEDS: metroNIDAZOLE 500 MG in APPROPRIATE DILUENT 1 EA IV ×2 (12:00→20:57)
[2017-06-06] MEDS: CIPROFLOXACIN 400 MG in APPROPRIATE DILUENT 1 EA IV (12:00)
[2017-06-06] MEDS ORDERED: DEXTROSE 50% 50 ML SYRINGE As Ordered (12:41)
[2017-06-06] MEDS: DEXTROSE 50% 50 ML SYRINGE IV (12:50)
[2017-06-06 12:57] LABS: BEDSIDE GLUCOSE 42 MG/DL (80-115)
[2017-06-06 13:18] LABS: BEDSIDE GLUCOSE 118 MG/DL (80-115)
[2017-06-06] MEDS: METOPROLOL TARTRATE 100 MG TAB PO (14:00)
[2017-06-06] MEDS: D5W/0.45% SODIUM CHLORIDE 1,000 ML IV (14:16)
[2017-06-06] MEDS: methylPREDNISolone INJ 40 MG/1 ML VIAL (J2920) IV (14:41)
[2017-06-06] MEDS ORDERED: GLUCOSE 4 GM CHEW TABLET PO (15:45)
[2017-06-06] MEDS ORDERED: DEXTROSE 50% 50 ML SYRINGE IV (15:45)
[2017-06-06] MEDS ORDERED: GLUCAGON FOR INJ 1 MG VIAL (J1610) SC (15:45)
[2017-06-06 16:53] LABS: BEDSIDE GLUCOSE 79 MG/DL (80-115)
[2017-06-06] MEDS: PIPERACILLIN/TAZOBACTAM SOD 2.25 GM in APPROPRIATE DILUENT 1 EA IV (17:20)
[2017-06-06] MEDS: HumaLOG INSULIN (NovoLOG) PER UNIT SC ×2 (17:21→20:54)
[2017-06-06 18:38] LABS: BEDSIDE GLUCOSE 115 MG/DL (80-115)
[2017-06-06] MEDS: METOPROLOL TART 50 MG TAB PO (20:54)
[2017-06-06 20:55] LABS: BEDSIDE GLUCOSE 132 MG/DL (80-115)
[2017-06-06] MEDS: HEPARIN SOD (PORCINE) 5000 UNITS/ML VIAL SC (20:57)
[2017-06-07] MEDS ORDERED: CIPROFLOXACIN 200 MG in APPROPRIATE DILUENT 1 EA IV
[2017-06-07] MEDS: MORPHINE 2 MG/ML 1ML SYRINGE IV (02:45)
[2017-06-07] MEDS: D5W/0.45% SODIUM CHLORIDE 1,000 ML IV ×2 (02:51→17:04)
[2017-06-07 03:09] LABS: BEDSIDE GLUCOSE 131 MG/DL (80-115)
[2017-06-07] MEDS: ONDANSETRON 4MG/2ML VIAL (J2405) IV (03:22)
[2017-06-07] MEDS: HYDROCORTISONE 100 MG/2 ML VIAL (J1720) IV ×3 (04:06→20:22)
[2017-06-07] MEDS: MORPHINE 4 MG/ML 1ML SYRINGE IV ×2 (04:07→09:13)
[2017-06-07] MEDS: PIPERACILLIN/TAZOBACTAM SOD 2.25 GM in APPROPRIATE DILUENT 1 EA IV ×2 (04:24→17:04)
[2017-06-07 04:27] LABS: BASO % 0.1 % (0.0-1.0); HEMATOCRIT 24.2 % (42.0-52.0); IMMATURE GRANULOCYTE # 0.1 10^3/uL (0-0); LYMPH # 0.8 10^3/uL (1.5-4.5); LYMPH % 7.9 % (24.0-44.0); MEAN CORPUSCULAR HEMOGLOBIN 33.1 pg (27.0-33.0); MEAN CORPUSCULAR HGB CONC 33.5 g/dl (32.0-36.5); MEAN CORPUSCULAR VOLUME 98.8 fl (80.0-96.0); MONO # 0.5 10^3/uL (0.0-0.8); MONO % 4.8 % (0.0-5.0); NEUTROPHILS # 9.1 10^3/uL (1.8-7.7); NEUTROPHILS % 86.2 % (36.0-66.0); PLATELET COUNT, AUTOMATED 124 10^3/uL (150-450); RED BLOOD COUNT 2.45 10^6/uL (4.30-6.10); RED CELL DISTRIBUTION WIDTH 16.2 % (11.5-14.5); WHITE BLOOD COUNT 10.6 10^3/uL (4.0-10.0)
[2017-06-07 04:38] LABS: HEMOGLOBIN 8.1 g/dl (14.0-18.0)
[2017-06-07 04:49] LABS: ANION GAP 8 MEQ/L (8-16); BLOOD UREA NITROGEN 37 MG/DL (7-18); CALCIUM LEVEL 8.1 MG/DL (8.8-10.2); CARBON DIOXIDE LEVEL 30 MEQ/L (21-32); CHLORIDE LEVEL 98 MEQ/L (98-107); CREATININE FOR GFR 5.63 MG/DL (0.70-1.30); GLOMERULAR FILTRATION RATE 10.9 (>49); GLUCOSE, FASTING 102 MG/DL (80-110); POTASSIUM SERUM 4.3 MEQ/L (3.5-5.1); SODIUM LEVEL 136 MEQ/L (136-145)
[2017-06-07 04:53] LABS: ALBUMIN 2.7 GM/DL (3.2-5.2); ALBUMIN/GLOBULIN RATIO 0.93 (1.00-1.93); ALKALINE PHOSPHATASE 51 U/L (45-117); ALT/SGPT 13 U/L (12-78); AST/SGOT 10 U/L (7-37); BILIRUBIN,DIRECT 0.2 MG/DL (0.0-0.2); BILIRUBIN,TOTAL 0.8 MG/DL (0.2-1.0); MAGNESIUM LEVEL 1.9 MG/DL (1.8-2.4); TOTAL PROTEIN 5.6 GM/DL (6.4-8.2)
[2017-06-07 04:53] LABS: LACTIC ACID SEPSIS PROTOCOL 1.1 MMOL/L (0.4-2.0)
[2017-06-07] MEDS: metroNIDAZOLE 500 MG in APPROPRIATE DILUENT 1 EA IV ×3 (05:05→20:38)
[2017-06-07] MEDS: HumaLOG INSULIN (NovoLOG) PER UNIT SC (07:30)
[2017-06-07] MEDS ORDERED: methylPREDNISolone INJ 40 MG/1 ML VIAL (J2920) IV (09:00)
[2017-06-07] MEDS: HEPARIN SOD (PORCINE) 5000 UNITS/ML VIAL SC ×2 (09:12→20:38)
[2017-06-07] MEDS: METOPROLOL TARTRATE 100 MG TAB PO (09:12)
[2017-06-07] MEDS: PANTOPRAZOLE 40MG INJ (PROTONIX) (C9113) IV (12:02)
[2017-06-07] MEDS: FAMOTIDINE 20 MG TAB PO ×2 (12:02→20:39)
[2017-06-07] MEDS: METOPROLOL TART 50 MG TAB PO (20:41)
[2017-06-08] MEDS: HYDROCORTISONE 100 MG/2 ML VIAL (J1720) IV ×3 (04:03→20:16)
[2017-06-08 05:25] LABS: BASO % 0.1 % (0.0-1.0); HEMATOCRIT 24.7 % (42.0-52.0); HEMOGLOBIN 8.2 g/dl (14.0-18.0); IMMATURE GRANULOCYTE # 0.1 10^3/uL (0-0); LYMPH # 0.7 10^3/uL (1.5-4.5); LYMPH % 6.9 % (24.0-44.0); MEAN CORPUSCULAR HEMOGLOBIN 32.2 pg (27.0-33.0); MEAN CORPUSCULAR HGB CONC 33.2 g/dl (32.0-36.5); MEAN CORPUSCULAR VOLUME 96.9 fl (80.0-96.0); MONO # 0.5 10^3/uL (0.0-0.8); MONO % 4.5 % (0.0-5.0); NEUTROPHILS # 9.2 10^3/uL (1.8-7.7); NEUTROPHILS % 87.5 % (36.0-66.0); PLATELET COUNT, AUTOMATED 139 10^3/uL (150-450); RED BLOOD COUNT 2.55 10^6/uL (4.30-6.10); RED CELL DISTRIBUTION WIDTH 15.8 % (11.5-14.5); WHITE BLOOD COUNT 10.5 10^3/uL (4.0-10.0)
[2017-06-08 05:44] LABS: ANION GAP 12 MEQ/L (8-16); BLOOD UREA NITROGEN 45 MG/DL (7-18); CARBON DIOXIDE LEVEL 26 MEQ/L (21-32); CHLORIDE LEVEL 98 MEQ/L (98-107); CREATININE FOR GFR 6.42 MG/DL (0.70-1.30); GLOMERULAR FILTRATION RATE 9.3 (>49); GLUCOSE, FASTING 66 MG/DL (80-110); POTASSIUM SERUM 4.4 MEQ/L (3.5-5.1); SODIUM LEVEL 136 MEQ/L (136-145)
[2017-06-08] MEDS: metroNIDAZOLE 500 MG in APPROPRIATE DILUENT 1 EA IV (07:41)
[2017-06-08] MEDS: PIPERACILLIN/TAZOBACTAM SOD 2.25 GM in APPROPRIATE DILUENT 1 EA IV (07:43)
[2017-06-08] MEDS: METOPROLOL TARTRATE 100 MG TAB PO (08:29)
[2017-06-08] MEDS: FAMOTIDINE 20 MG TAB PO ×2 (08:29→20:16)
[2017-06-08] MEDS: HEPARIN SOD (PORCINE) 5000 UNITS/ML VIAL SC ×2 (08:29→20:17)
[2017-06-08 08:44] LABS: BEDSIDE GLUCOSE 93 MG/DL (80-115)
[2017-06-08] MEDS: HEPARIN 1,000 UNITS/ML 10ML VIAL (FOR RADIOLOGY& DIALYSIS ONLY) XX (10:45)
[2017-06-08] MEDS ORDERED: SLF 3 ML SYR IV (11:30)
[2017-06-08] MEDS: SLF 3 ML SYR IV ×2 (14:00→22:00)
[2017-06-08 14:01] LABS: BEDSIDE GLUCOSE 75 MG/DL (80-115)
[2017-06-08] MEDS: metroNIDAZOLE (FLAGYL) 500 MG TAB PO ×2 (14:08→22:09)
[2017-06-08] MEDS: PANTOPRAZOLE 40MG INJ (PROTONIX) (C9113) IV (14:08)
[2017-06-08] MEDS: ASPIRIN 81 MG ENTERIC TAB PO (15:18)
[2017-06-08] MEDS: ACETAMINOPHEN TAB 650MG DOSE (2X325MG) PO (15:19)
[2017-06-08] MEDS ORDERED: DARBEPOETIN 100 MCG/0.5 ML *DIALYSIS* SYRINGE (J0882) IV (16:30)
[2017-06-08 17:20] LABS: BEDSIDE GLUCOSE 137 MG/DL (80-115)
[2017-06-08] MEDS: CIPROFLOXACIN 500 MG TAB PO (17:38)
[2017-06-08] MEDS: METOPROLOL TART 50 MG TAB PO (20:09)
[2017-06-08] MEDS: MORPHINE 2 MG/ML 1ML SYRINGE IV (20:17)
[2017-06-08 22:20] LABS: BEDSIDE GLUCOSE 161 MG/DL (80-115)
[2017-06-09] MEDS: MORPHINE 2 MG/ML 1ML SYRINGE IV ×4 (04:30→19:56)
[2017-06-09 05:13] LABS: BASO % 0.1 % (0.0-1.0); HEMATOCRIT 25.8 % (42.0-52.0); HEMOGLOBIN 8.5 g/dl (14.0-18.0); IMMATURE GRANULOCYTE # 0.1 10^3/uL (0-0); LYMPH # 0.8 10^3/uL (1.5-4.5); LYMPH % 8.5 % (24.0-44.0); MEAN CORPUSCULAR HEMOGLOBIN 32.6 pg (27.0-33.0); MEAN CORPUSCULAR HGB CONC 32.9 g/dl (32.0-36.5); MEAN CORPUSCULAR VOLUME 98.9 fl (80.0-96.0); MONO # 0.6 10^3/uL (0.0-0.8); MONO % 6.4 % (0.0-5.0); NEUTROPHILS # 7.4 10^3/uL (1.8-7.7); PLATELET COUNT, AUTOMATED 153 10^3/uL (150-450); RED BLOOD COUNT 2.61 10^6/uL (4.30-6.10); RED CELL DISTRIBUTION WIDTH 15.6 % (11.5-14.5); WHITE BLOOD COUNT 8.9 10^3/uL (4.0-10.0)
[2017-06-09] MEDS: metroNIDAZOLE (FLAGYL) 500 MG TAB PO ×3 (05:17→21:22)
[2017-06-09] MEDS: SLF 3 ML SYR IV ×3 (05:18→21:23)
[2017-06-09 05:25] LABS: ANION GAP 9 MEQ/L (8-16); BLOOD UREA NITROGEN 28 MG/DL (7-18); CALCIUM LEVEL 8.2 MG/DL (8.8-10.2); CARBON DIOXIDE LEVEL 28 MEQ/L (21-32); CHLORIDE LEVEL 100 MEQ/L (98-107); CREATININE FOR GFR 4.47 MG/DL (0.70-1.30); GLOMERULAR FILTRATION RATE 14.2 (>49); GLUCOSE, FASTING 160 MG/DL (80-110); POTASSIUM SERUM 4.2 MEQ/L (3.5-5.1); SODIUM LEVEL 137 MEQ/L (136-145)
[2017-06-09] MEDS: HYDROCORTISONE 100 MG/2 ML VIAL (J1720) IV ×2 (08:48→20:02)
[2017-06-09] MEDS: FAMOTIDINE 20 MG TAB PO ×2 (08:49→20:05)
[2017-06-09] MEDS: HEPARIN SOD (PORCINE) 5000 UNITS/ML VIAL SC ×2 (08:49→20:06)
[2017-06-09] MEDS: METOPROLOL TARTRATE 100 MG TAB PO (08:49)
[2017-06-09] MEDS: ASPIRIN 81 MG ENTERIC TAB PO (10:19)
[2017-06-09] MEDS: PANTOPRAZOLE 40MG INJ (PROTONIX) (C9113) IV (14:03)
[2017-06-09] MEDS: CIPROFLOXACIN 500 MG TAB PO (17:58)
[2017-06-09] MEDS: ONDANSETRON 4MG/2ML VIAL (J2405) IV (20:01)
[2017-06-09] MEDS: METOPROLOL TART 50 MG TAB PO (20:05)
[2017-06-10] MEDS: metroNIDAZOLE (FLAGYL) 500 MG TAB PO ×3 (05:53→21:12)
[2017-06-10] MEDS: FAMOTIDINE 20 MG TAB PO ×2 (05:54→21:12)
[2017-06-10] MEDS: ASPIRIN 81 MG ENTERIC TAB PO (05:54)
[2017-06-10] MEDS: SLF 3 ML SYR IV ×3 (05:54→21:16)
[2017-06-10] MEDS: HEPARIN SOD (PORCINE) 5000 UNITS/ML VIAL SC ×2 (05:54→21:13)
[2017-06-10] MEDS: MORPHINE 2 MG/ML 1ML SYRINGE IV (05:55)
[2017-06-10] MEDS: ONDANSETRON 4MG/2ML VIAL (J2405) IV ×2 (05:55→21:17)
[2017-06-10] MEDS: HYDROCORTISONE 100 MG/2 ML VIAL (J1720) IV (06:13)
[2017-06-10 06:16] LABS: BEDSIDE GLUCOSE 152 MG/DL (80-115)
[2017-06-10 07:03] LABS: BASO % 0.1 % (0.0-1.0); EOS % 0.1 % (0.0-3.0); HEMATOCRIT 28.5 % (42.0-52.0); HEMOGLOBIN 9.3 g/dl (14.0-18.0); IMMATURE GRANULOCYTE # 0.1 10^3/uL (0-0); IMMATURE GRANULOCYTE % 0.9 % (0-0); LYMPH # 0.9 10^3/uL (1.5-4.5); LYMPH % 8.5 % (24.0-44.0); MEAN CORPUSCULAR HEMOGLOBIN 32.1 pg (27.0-33.0); MEAN CORPUSCULAR HGB CONC 32.6 g/dl (32.0-36.5); MEAN CORPUSCULAR VOLUME 98.3 fl (80.0-96.0); MONO # 0.7 10^3/uL (0.0-0.8); MONO % 6.4 % (0.0-5.0); NEUTROPHILS # 8.9 10^3/uL (1.8-7.7); PLATELET COUNT, AUTOMATED 176 10^3/uL (150-450); RED CELL DISTRIBUTION WIDTH 15.5 % (11.5-14.5); WHITE BLOOD COUNT 10.5 10^3/uL (4.0-10.0)
[2017-06-10 07:16] LABS: ANION GAP 9 MEQ/L (8-16); BLOOD UREA NITROGEN 45 MG/DL (7-18); CALCIUM LEVEL 8.2 MG/DL (8.8-10.2); CARBON DIOXIDE LEVEL 27 MEQ/L (21-32); CHLORIDE LEVEL 100 MEQ/L (98-107); CREATININE FOR GFR 5.91 MG/DL (0.70-1.30); GLOMERULAR FILTRATION RATE 10.3 (>49); GLUCOSE, FASTING 153 MG/DL (80-110); SODIUM LEVEL 136 MEQ/L (136-145)
[2017-06-10] MEDS: METOPROLOL TARTRATE 100 MG TAB PO (07:59)
[2017-06-10] MEDS: HEPARIN 1,000 UNITS/ML 10ML VIAL (FOR RADIOLOGY& DIALYSIS ONLY) XX (12:15)
[2017-06-10 12:57] LABS: BEDSIDE GLUCOSE 114 MG/DL (80-115)
[2017-06-10] MEDS: PANTOPRAZOLE 40MG INJ (PROTONIX) (C9113) IV (13:23)
[2017-06-10] MEDS: MOM 30ML SUSPENSION UDC PO (14:42)
[2017-06-10] MEDS: methylPREDNISolone 4 MG TAB PO (16:15)
[2017-06-10 16:49] LABS: BEDSIDE GLUCOSE 134 MG/DL (80-115)
[2017-06-10] MEDS: CIPROFLOXACIN 500 MG TAB PO (17:49)
[2017-06-10] MEDS: MAGNESIUM CITRATE 300 ML BTL PO (18:38)
[2017-06-10 20:04] LABS: BEDSIDE GLUCOSE 101 MG/DL (80-115)
[2017-06-10] MEDS: METOPROLOL TART 50 MG TAB PO (21:13)
[2017-06-11] MEDS: metroNIDAZOLE (FLAGYL) 500 MG TAB PO ×2 (05:09→13:37)
[2017-06-11] MEDS: SLF 3 ML SYR IV ×3 (05:09→21:34)
[2017-06-11 06:57] LABS: BEDSIDE GLUCOSE 168 MG/DL (80-115)
[2017-06-11 07:29] LABS: BASO % 0.2 % (0.0-1.0); EOS % 0.2 % (0.0-3.0); HEMATOCRIT 30.3 % (42.0-52.0); IMMATURE GRANULOCYTE # 0.3 10^3/uL (0-0); IMMATURE GRANULOCYTE % 2.7 % (0-0); LYMPH % 8.1 % (24.0-44.0); MEAN CORPUSCULAR HEMOGLOBIN 32.5 pg (27.0-33.0); MEAN CORPUSCULAR VOLUME 98.4 fl (80.0-96.0); MONO # 0.8 10^3/uL (0.0-0.8); MONO % 6.6 % (0.0-5.0); NEUTROPHILS # 9.9 10^3/uL (1.8-7.7); NEUTROPHILS % 82.2 % (36.0-66.0); PLATELET COUNT, AUTOMATED 184 10^3/uL (150-450); RED BLOOD COUNT 3.08 10^6/uL (4.30-6.10); RED CELL DISTRIBUTION WIDTH 15.9 % (11.5-14.5); WHITE BLOOD COUNT 12.1 10^3/uL (4.0-10.0)
[2017-06-11 07:45] LABS: ANION GAP 10 MEQ/L (8-16); BLOOD UREA NITROGEN 37 MG/DL (7-18); CALCIUM LEVEL 8.8 MG/DL (8.8-10.2); CARBON DIOXIDE LEVEL 29 MEQ/L (21-32); CHLORIDE LEVEL 99 MEQ/L (98-107); CREATININE FOR GFR 4.83 MG/DL (0.70-1.30); GLUCOSE, FASTING 164 MG/DL (80-110); POTASSIUM SERUM 4.5 MEQ/L (3.5-5.1); SODIUM LEVEL 138 MEQ/L (136-145)
[2017-06-11] MEDS: METOPROLOL TARTRATE 100 MG TAB PO ×3 (09:00→09:57)
[2017-06-11] MEDS: MAGNESIUM CITRATE 300 ML BTL PO (09:18)
[2017-06-11] MEDS: HEPARIN SOD (PORCINE) 5000 UNITS/ML VIAL SC ×2 (09:18→21:35)
[2017-06-11] MEDS: FAMOTIDINE 20 MG TAB PO (09:19)
[2017-06-11] MEDS: DOCUSATE SODIUM 100 MG CAP PO (09:19)
[2017-06-11] MEDS: ASPIRIN 81 MG ENTERIC TAB PO (09:19)
[2017-06-11] MEDS: methylPREDNISolone 4 MG TAB PO (09:20)
[2017-06-11 09:23] LABS: TROPONIN I < 0.02 NG/ML (< 0.10)
[2017-06-11 12:00] LABS: BEDSIDE GLUCOSE 217 MG/DL (80-115)
[2017-06-11] MEDS: PANTOPRAZOLE 40MG INJ (PROTONIX) (C9113) IV (13:37)
[2017-06-11] MEDS ORDERED: ISOVUE-370 76% 100ML VIAL (Q9967) As Ordered (15:24)
[2017-06-11] MEDS ORDERED: PIPERACILLIN/TAZOBACTAM SOD 3.375 GM in APPROPRIATE DILUENT 1 EA IV (16:45)
[2017-06-11 17:18] LABS: BASO % 0.3 % (0.0-1.0); HEMATOCRIT 29.1 % (42.0-52.0); HEMOGLOBIN 9.7 g/dl (14.0-18.0); IMMATURE GRANULOCYTE # 0.5 10^3/uL (0-0); LYMPH # 0.9 10^3/uL (1.5-4.5); LYMPH % 7.2 % (24.0-44.0); MEAN CORPUSCULAR HGB CONC 33.3 g/dl (32.0-36.5); MONO # 0.6 10^3/uL (0.0-0.8); MONO % 4.9 % (0.0-5.0); NEUTROPHILS # 9.9 10^3/uL (1.8-7.7); NEUTROPHILS % 83.6 % (36.0-66.0); PLATELET COUNT, AUTOMATED 192 10^3/uL (150-450); RED BLOOD COUNT 2.94 10^6/uL (4.30-6.10); WHITE BLOOD COUNT 11.8 10^3/uL (4.0-10.0)
[2017-06-11 17:40] LABS: ALBUMIN 2.8 GM/DL (3.2-5.2); ALBUMIN/GLOBULIN RATIO 0.76 (1.00-1.93); ALKALINE PHOSPHATASE 64 U/L (45-117); ALT/SGPT 15 U/L (12-78); ANION GAP 10 MEQ/L (8-16); AST/SGOT 14 U/L (7-37); BILIRUBIN,TOTAL 0.5 MG/DL (0.2-1.0); BLOOD UREA NITROGEN 49 MG/DL (7-18); CALCIUM LEVEL 8.5 MG/DL (8.8-10.2); CARBON DIOXIDE LEVEL 28 MEQ/L (21-32); CHLORIDE LEVEL 97 MEQ/L (98-107); GLOMERULAR FILTRATION RATE 10.9 (>49); GLUCOSE, FASTING 261 MG/DL (80-110); POTASSIUM SERUM 4.7 MEQ/L (3.5-5.1); SODIUM LEVEL 135 MEQ/L (136-145); TOTAL PROTEIN 6.5 GM/DL (6.4-8.2)
[2017-06-11 17:44] LABS: LACTIC ACID SEPSIS PROTOCOL 1.3 MMOL/L (0.4-2.0)
[2017-06-11] MEDS: PIPERACILLIN/TAZOBACTAM SOD 2.25 GM in APPROPRIATE DILUENT 1 EA IV (18:51)
[2017-06-11 19:03] LABS: BEDSIDE GLUCOSE 211 MG/DL (80-115)
[2017-06-12] MEDS: SLF 3 ML SYR IV ×3 (06:29→21:05)
[2017-06-12] MEDS: PIPERACILLIN/TAZOBACTAM SOD 2.25 GM in APPROPRIATE DILUENT 1 EA IV ×2 (06:29→18:50)
[2017-06-12 06:50] LABS: BASO % 0.2 % (0.0-1.0); EOS % 0.3 % (0.0-3.0); HEMATOCRIT 30.5 % (42.0-52.0); HEMOGLOBIN 10.1 g/dl (14.0-18.0); IMMATURE GRANULOCYTE # 0.5 10^3/uL (0-0); LYMPH # 1.2 10^3/uL (1.5-4.5); LYMPH % 12.9 % (24.0-44.0); MEAN CORPUSCULAR HEMOGLOBIN 32.9 pg (27.0-33.0); MEAN CORPUSCULAR HGB CONC 33.1 g/dl (32.0-36.5); MEAN CORPUSCULAR VOLUME 99.3 fl (80.0-96.0); MONO # 0.8 10^3/uL (0.0-0.8); MONO % 8.1 % (0.0-5.0); NEUTROPHILS # 6.9 10^3/uL (1.8-7.7); NEUTROPHILS % 73.5 % (36.0-66.0); PLATELET COUNT, AUTOMATED 192 10^3/uL (150-450); RED BLOOD COUNT 3.07 10^6/uL (4.30-6.10); RED CELL DISTRIBUTION WIDTH 15.9 % (11.5-14.5); WHITE BLOOD COUNT 9.4 10^3/uL (4.0-10.0)
[2017-06-12 07:08] LABS: ANION GAP 12 MEQ/L (8-16); BLOOD UREA NITROGEN 60 MG/DL (7-18); CALCIUM LEVEL 8.3 MG/DL (8.8-10.2); CARBON DIOXIDE LEVEL 27 MEQ/L (21-32); CHLORIDE LEVEL 100 MEQ/L (98-107); CREATININE FOR GFR 6.69 MG/DL (0.70-1.30); GLOMERULAR FILTRATION RATE 8.9 (>49); GLUCOSE, FASTING 122 MG/DL (80-110); POTASSIUM SERUM 4.3 MEQ/L (3.5-5.1); SODIUM LEVEL 139 MEQ/L (136-145)
[2017-06-12] MEDS: HEPARIN SOD (PORCINE) 5000 UNITS/ML VIAL SC ×2 (08:24→21:05)
[2017-06-12] MEDS: ASPIRIN 81 MG ENTERIC TAB PO (08:24)
[2017-06-12] MEDS: METOPROLOL TARTRATE 100 MG TAB PO (08:25)
[2017-06-12] MEDS: HYDROCORTISONE 100 MG/2 ML VIAL (J1720) IV ×2 (08:25→21:04)
[2017-06-12] MEDS: HEPARIN 1,000 UNITS/ML 10ML VIAL (FOR RADIOLOGY& DIALYSIS ONLY) XX (12:15)
[2017-06-12 12:52] LABS: BEDSIDE GLUCOSE 96 MG/DL (80-115)
[2017-06-12] MEDS: PANTOPRAZOLE 40MG INJ (PROTONIX) (C9113) IV (13:26)
[2017-06-12 16:49] LABS: BEDSIDE GLUCOSE 110 MG/DL (80-115)
[2017-06-12 20:33] LABS: BEDSIDE GLUCOSE 154 MG/DL (80-115)
[2017-06-12] MEDS: METOPROLOL TART 50 MG TAB PO (21:05)
[2017-06-13] MEDS: PIPERACILLIN/TAZOBACTAM SOD 2.25 GM in APPROPRIATE DILUENT 1 EA IV ×2 (05:44→17:23)
[2017-06-13] MEDS: SLF 3 ML SYR IV ×3 (05:44→21:02)
[2017-06-13 06:32] LABS: HEMATOCRIT 29.8 % (42.0-52.0); HEMOGLOBIN 9.6 g/dl (14.0-18.0); MEAN CORPUSCULAR HEMOGLOBIN 32.2 pg (27.0-33.0); MEAN CORPUSCULAR HGB CONC 32.2 g/dl (32.0-36.5); PLATELET COUNT, AUTOMATED 213 10^3/uL (150-450); RED BLOOD COUNT 2.98 10^6/uL (4.30-6.10); RED CELL DISTRIBUTION WIDTH 16.4 % (11.5-14.5); WHITE BLOOD COUNT 7.7 10^3/uL (4.0-10.0)
[2017-06-13 06:36] LABS: ADD MANUAL DIFFER YES; DIFF SLIDE NUMBER 6; POS COUNT POS FLAG; POSITIVE MORPH POS FLAG
[2017-06-13 07:10] LABS: EOSINOPHILS 1 % (0-5); LYMPHOCYTES 13 % (16-52); METAMYELOCYTES 1 % (0-0); MONOCYTES 4 % (0-8); NEUTROPHILS 81 % (35-75)
[2017-06-13 07:12] LABS: PLATELET ESTIMATE NORMAL (NORMAL)
[2017-06-13 07:13] LABS: ANION GAP 13 MEQ/L (8-16); ANISOCYTOSIS 2+; BLOOD UREA NITROGEN 28 MG/DL (7-18); C REACTIVE PROTEIN QUANTITATIV 4.92 MG/DL (0.00-0.30); CALCIUM LEVEL 8.1 MG/DL (8.8-10.2); CARBON DIOXIDE LEVEL 26 MEQ/L (21-32); CHLORIDE LEVEL 100 MEQ/L (98-107); GLOMERULAR FILTRATION RATE 13.1 (>49); GLUCOSE, FASTING 199 MG/DL (80-110); POTASSIUM SERUM 4.3 MEQ/L (3.5-5.1); SODIUM LEVEL 139 MEQ/L (136-145)
[2017-06-13] MEDS: HEPARIN SOD (PORCINE) 5000 UNITS/ML VIAL SC ×2 (08:41→20:33)
[2017-06-13] MEDS: METOPROLOL TARTRATE 100 MG TAB PO (08:42)
[2017-06-13] MEDS: ASPIRIN 81 MG ENTERIC TAB PO (08:42)
[2017-06-13] MEDS: HYDROCORTISONE 100 MG/2 ML VIAL (J1720) IV ×2 (08:42→20:33)
[2017-06-13 11:45] LABS: BEDSIDE GLUCOSE 180 MG/DL (80-115)
[2017-06-13] MEDS: PANTOPRAZOLE 40MG INJ (PROTONIX) (C9113) IV (13:25)
[2017-06-13 17:21] LABS: BEDSIDE GLUCOSE 176 MG/DL (80-115)
[2017-06-13 20:04] LABS: BEDSIDE GLUCOSE 151 MG/DL (80-115)
[2017-06-13] MEDS: METOPROLOL TART 50 MG TAB PO (20:34)
[2017-06-14] MEDS: PIPERACILLIN/TAZOBACTAM SOD 2.25 GM in APPROPRIATE DILUENT 1 EA IV ×2 (06:00→17:23)
[2017-06-14] MEDS: SLF 3 ML SYR IV ×3 (06:00→21:39)
[2017-06-14 07:45] LABS: C REACTIVE PROTEIN QUANTITATIV 2.88 MG/DL (0.00-0.30)
[2017-06-14] MEDS: METOPROLOL TARTRATE 100 MG TAB PO (08:20)
[2017-06-14] MEDS: HEPARIN SOD (PORCINE) 5000 UNITS/ML VIAL SC ×2 (08:21→21:39)
[2017-06-14] MEDS: HYDROCORTISONE 100 MG/2 ML VIAL (J1720) IV (08:21)
[2017-06-14] MEDS: ASPIRIN 81 MG ENTERIC TAB PO (08:21)
[2017-06-14 11:48] LABS: BEDSIDE GLUCOSE 156 MG/DL (80-115)
[2017-06-14] MEDS: PANTOPRAZOLE 40MG INJ (PROTONIX) (C9113) IV (12:02)
[2017-06-14 16:43] LABS: BEDSIDE GLUCOSE 211 MG/DL (80-115)
[2017-06-14 21:11] LABS: BEDSIDE GLUCOSE 206 MG/DL (80-115)
[2017-06-14] MEDS: METOPROLOL TART 50 MG TAB PO (21:40)
[2017-06-14] MEDS: methylPREDNISolone 4 MG TAB PO (21:40)
[2017-06-15] MEDS: SLF 3 ML SYR IV ×3 (06:08→21:16)
[2017-06-15] MEDS: HEPARIN SOD (PORCINE) 5000 UNITS/ML VIAL SC ×2 (06:09→21:17)
[2017-06-15] MEDS: PIPERACILLIN/TAZOBACTAM SOD 2.25 GM in APPROPRIATE DILUENT 1 EA IV (06:09)
[2017-06-15] MEDS: ASPIRIN 81 MG ENTERIC TAB PO (06:09)
[2017-06-15 07:37] LABS: C REACTIVE PROTEIN QUANTITATIV 1.92 MG/DL (0.00-0.30)
[2017-06-15] MEDS: HEPARIN 1,000 UNITS/ML 10ML VIAL (FOR RADIOLOGY& DIALYSIS ONLY) XX (11:15)
[2017-06-15 17:17] LABS: BEDSIDE GLUCOSE 126 MG/DL (80-115)
[2017-06-15] MEDS: metroNIDAZOLE (FLAGYL) 500 MG TAB PO ×2 (17:50→21:17)
[2017-06-15] MEDS: METOPROLOL TARTRATE 100 MG TAB PO (17:50)
[2017-06-15] MEDS: CIPROFLOXACIN 250 MG TAB PO (17:50)
[2017-06-15] MEDS: PANTOPRAZOLE 40MG INJ (PROTONIX) (C9113) IV (17:57)
[2017-06-15 21:00] LABS: BEDSIDE GLUCOSE 242 MG/DL (80-115)
[2017-06-15] MEDS: METOPROLOL TART 50 MG TAB PO (21:12)
[2017-06-15] MEDS: methylPREDNISolone 4 MG TAB PO (21:17)
[2017-06-16] MEDS: SLF 3 ML SYR IV (05:42)
[2017-06-16] MEDS: CIPROFLOXACIN 250 MG TAB PO (05:42)
[2017-06-16 06:56] LABS: HEMATOCRIT 31.6 % (42.0-52.0); HEMOGLOBIN 10.2 g/dl (14.0-18.0); MEAN CORPUSCULAR HEMOGLOBIN 32.4 pg (27.0-33.0); MEAN CORPUSCULAR HGB CONC 32.3 g/dl (32.0-36.5); MEAN CORPUSCULAR VOLUME 100.3 fl (80.0-96.0); PLATELET COUNT, AUTOMATED 195 10^3/uL (150-450); RED BLOOD COUNT 3.15 10^6/uL (4.30-6.10); WHITE BLOOD COUNT 12.7 10^3/uL (4.0-10.0)
[2017-06-16 07:19] LABS: ANION GAP 8 MEQ/L (8-16); BLOOD UREA NITROGEN 26 MG/DL (7-18); C REACTIVE PROTEIN QUANTITATIV 1.64 MG/DL (0.00-0.30); CALCIUM LEVEL 8.5 MG/DL (8.8-10.2); CARBON DIOXIDE LEVEL 26 MEQ/L (21-32); CHLORIDE LEVEL 103 MEQ/L (98-107); CREATININE FOR GFR 4.56 MG/DL (0.70-1.30); GLOMERULAR FILTRATION RATE 13.9 (>49); GLUCOSE, FASTING 216 MG/DL (80-110); POTASSIUM SERUM 4.9 MEQ/L (3.5-5.1); SODIUM LEVEL 137 MEQ/L (136-145)
[2017-06-16] MEDS: ASPIRIN 81 MG ENTERIC TAB PO (08:15)
[2017-06-16] MEDS: HEPARIN SOD (PORCINE) 5000 UNITS/ML VIAL SC (08:15)
[2017-06-16] MEDS: METOPROLOL TARTRATE 100 MG TAB PO (08:15)
[2017-06-16] MEDS: metroNIDAZOLE (FLAGYL) 500 MG TAB PO (08:15)
[2017-06-16 11:51] LABS: BEDSIDE GLUCOSE 185 MG/DL (80-115)
== END 2017-06-16 12:35 | disposition home or self-care (01) | DRG 391 ==
LOC: M PCU 06-07 04:50 → M MS4PR 06-09 20:58 → M ED 08:42 → M ED INP 12:37 → M PCU 13:45
DX: K57.20 Diverticulitis of large intestine with perforation and abscess without bleeding (principal); N18.6 End stage renal disease; M31.31 Wegener's granulomatosis with renal involvement; N25.81 Secondary hyperparathyroidism of renal origin; D61.818 Other pancytopenia; M02.30 Reiter's disease, unspecified site; K21.9 Gastro-esophageal reflux disease without esophagitis; E78.5 Hyperlipidemia, unspecified; G43.909 Migraine, unspecified, not intractable, without status migrainosus; D63.1 Anemia in chronic kidney disease; I48.91 Unspecified atrial fibrillation; M32.10 Systemic lupus erythematosus, organ or system involvement unspecified; Z79.52 Long term (current) use of systemic steroids; I25.10 Atherosclerotic heart disease of native coronary artery without angina pectoris; Z95.2 Presence of prosthetic heart valve; Z79.899 Other long term (current) drug therapy; E11.649 Type 2 diabetes mellitus with hypoglycemia without coma; E83.39 Other disorders of phosphorus metabolism; I95.9 Hypotension, unspecified; H02.409 Unspecified ptosis of unspecified eyelid; N28.1 Cyst of kidney, acquired; K80.20 Calculus of gallbladder without cholecystitis without obstruction

== ENCOUNTER → 2017-06-22 | Outpatient (REF) | payer MEDICARE ==
[2017-06-22 21:56] LABS: COMPLEMENT C4 18.8 MG/DL (10-40)
[2017-06-22 21:56] LABS: COMPLEMENT C3 82.2 MG/DL (90-180)
[2017-06-26 00:10] LABS: MYELOPEROXIDASE ANTIBODY <9.0 U/mL (0.0-9.0)
[2017-06-26 00:10] LABS: PR3 ANTIPROTEINASE ANTIBODIES 8.9 U/mL (0.0-3.5)
== END ==
LOC: M LAB REF 19:17
DX: M31.31 Wegener's granulomatosis with renal involvement (principal); N00.8 Acute nephritic syndrome with other morphologic changes
CPT/HCPCS: 86160

== ENCOUNTER → 2017-07-14 | Outpatient (CLI) | payer MEDICARE ==
[~2017-07-14] MED LIST changes: -ALTEPLASE 2 MG/2 ML VIAL (J2997 PER 1MG) As Ordered ONE; -AMLO5TAB2; -AMLO5TAB2 PO; -ATOR1TAB21 PO; -CALC1CAP PO; -CALC1CAP31; -CALC1CAP31 PO; -CELL250C PO; -ELIQ5TAB PO; -EPOG2000; -FENO134C PO; -FERR1TAB8; -FERR1TAB8 PO; -FURO20TA2; -FURO20TA2 PO; -GLIM2TA PO; -GLIM2TAB; -GLIM2TAB PO; -HEPARIN SOD (PORCINE) 5000 UNITS/ML VIAL As Ordered ONE; -IMIT100T PO; +ISOVUE-300 61% 50ML VIAL (Q9967) As Ordered; -ISOVUE-300 61% 50ML VIAL (Q9967) As Ordered ONE; -LISI10TA4 PO; -LOPR1TAB6 PO; -LOPR1TAB7 PO; -METH16TA2 PO; -METH4TAB28 PO; -METO100T5; -METO100T5 PO; +MIDAZOLAM INJ 2 MG/2 ML VIAL (J2250) As Ordered; -MIDAZOLAM INJ 2 MG/2 ML VIAL (J2250) As Ordered ONE; -MONT10TA2; -MONT10TA2 PO; +ONDANSETRON 4MG/2ML VIAL (J2405) As Ordered; -ONDANSETRON 4MG/2ML VIAL (J2405) As Ordered ONE; -PANT40TA2 PO; -PRED10TA PO; -PRED20TA; -PRED20TA PO; -RANI150T PO; -RANI75TA9 PO; -RANITIDINE; -SING10TA32 PO; -SUMA100T2 PO; -TYLE325T5 PO; -VITATAB11 PO; +fentaNYL 100 MCG/2 ML INJECTION (J3010) As Ordered; -fentaNYL 100 MCG/2 ML INJECTION (J3010) As Ordered ONE
== END | disposition home or self-care (01) ==
LOC: M IRPRO 11:10
DX: T82.858A Stenosis of other vascular prosthetic devices, implants and grafts, initial encounter (principal); N18.6 End stage renal disease
CPT/HCPCS: 36902

== ENCOUNTER 2017-08-04 08:47 | Day surgery (SDC) | payer MEDICARE ==
[2017-08-04] MEDS: NS 1,000 ML IV (09:19)
[2017-08-04 09:37] LABS: BEDSIDE GLUCOSE 95 MG/DL (80-115)
[2017-08-04] MEDS ORDERED: LIDOCAINE 2% INJ 100 MG/5 ML SDV (FOR ANES.) As Ordered (09:49)
[2017-08-04] MEDS ORDERED: PROPOFOL 200 MG/20 ML VIAL As Ordered (09:49)
== END 2017-08-04 10:55 | disposition home or self-care (01) ==
LOC: M OPP 08:47
DX: K57.20 Diverticulitis of large intestine with perforation and abscess without bleeding (principal); D12.5 Benign neoplasm of sigmoid colon; K63.89 Other specified diseases of intestine; K64.1 Second degree hemorrhoids; I48.91 Unspecified atrial fibrillation; I25.10 Atherosclerotic heart disease of native coronary artery without angina pectoris; I12.0 Hypertensive chronic kidney disease with stage 5 chronic kidney disease or end stage renal disease; E78.5 Hyperlipidemia, unspecified; I34.9 Nonrheumatic mitral valve disorder, unspecified; I73.9 Peripheral vascular disease, unspecified; Z95.1 Presence of aortocoronary bypass graft; K21.9 Gastro-esophageal reflux disease without esophagitis; R12 Heartburn; N18.6 End stage renal disease; D63.1 Anemia in chronic kidney disease; I71.4 Abdominal aortic aneurysm, without rupture; E11.9 Type 2 diabetes mellitus without complications; M19.90 Unspecified osteoarthritis, unspecified site; G47.30 Sleep apnea, unspecified; R06.83 Snoring; Z79.82 Long term (current) use of aspirin; Z79.899 Other long term (current) drug therapy
CPT/HCPCS: 45380